=== PATIENT | female | born 1980 | race Caucasian/White ===

== ENCOUNTER 2017-05-05 20:44 | Emergency (ER) | payer OTHER, SELFPAY ==
[2017-05-05 20:45] VITALS: BP 159/108; PULSE 86; RESP 17; TEMP 37.2; O2SAT 97; BMI 36.4
--- NOTE | 2017-05-05 21:07 | ED.DCSUM_ITS ---
- ER Visit Summary Date of Service: 05/05/17 Chief Complaint: Flu History of Present Illness: The patient is a 37 F who presents because of severe headache, myalgias, arthralgias, nonproductive cough, nasal congestion that has gotten worse since yesterday. Yesterday she had nausea and vomiting. She is had no diarrhea. She denies rash. She denies stiffness of her neck. She is a non-smoker. These read written note for complete detail Physical Examination: Vital signs are remarkable for blood pressure 159/108. Head is atraumatic normocephalic. Pupils are equal round reactive. Extraocular muscles are intact. TMs are pearly white with landmarks noted. Nares patent with no drainage. Posterior pharynx without erythema or exudate. Uvula is midline. There is no dysphonia or dysphasia. Trachea is midline. There is no stridor with auscultation of the neck. Neck is supple with no meningeal findings. Heart is regular without murmur, gallop or rub. S1 and S2 are normal. Lungs are clear to auscultation with good movement of air bilaterally. No rash or skin lesions noted. Neuro exam is nonfocal. Test Results: No tests are indicated Emergency Department Course and Treatment: Patient was explained benefits of Tamiflu versus no treatment. After her questions were answered she declined Tamiflu. Treatment Plan: Symptomatic and appropriate home-going instructions Disposition: Discharge to home with spouse Impression: Influenza This note was generated with [employer] dictation software. It may contain incorrect words, spelling, and punctuation that were not noted in review of the chart prior to signing ED Disposition - Plan for ED Patient: Disposition: Home or Assisted Living Chief Complaint: General Illness Instructions: ED Flu Referrals: Dennis Sosa MD [Primary Care Provider] - 1 Week if not improving
[2017-05-05 21:15] VITALS: BP 156/80; PULSE 82; RESP 16; O2SAT 96
== END 2017-05-05 21:16 | disposition home or self-care (01) ==
PROVIDERS: Emergency Provider Emergency Medicine; Family Provider Family Medicine; PCP Family Medicine
DX: J11.1 Influenza due to unidentified influenza virus with other respiratory manifestations (principal); E66.9 Obesity, unspecified
CPT/HCPCS: 99282

== ENCOUNTER 2017-06-06 02:40 | Day surgery (SDC) | payer OTHER, SELFPAY ==
[2017-06-06] VITALS (14 sets, daily range): BP systolic 144–191; BP diastolic 76–124; PULSE 68–96; RESP 16–20; TEMP 36.6–37.2; O2SAT 94–100; BMI 37.6
--- NOTE | 2017-06-06 02:51 | ED.VISSUMM ---
- ER Visit Summary Date of Service: 06/06/17 Chief Complaint: Abdominal pain History of Present Illness: The patient is a 37 F presenting with periumbilical abdominal pain. She states she has been having pain over the past week or so. She went to [facility]. She had ultrasound which was unremarkable. She was put on Protonix and Leivasy and advised to follow-up with her primary care physician. She followed up with Dr. Sosa. She has a CT ordered for June 14. She states approximately 30 min prior to arrival she felt a bulge in her mid abdomen and began having severe pain. Physical Examination: Vitals are stable. Patient is afebrile. Alert no acute distress. HEENT exam is unremarkable. Neck is supple. Lungs are clear and equal bilaterally. Heart is regular rate and rhythm. Abdomen is soft periumbilical tenderness with palpable hernia Extremities are unremarkable. Skin is warm and dry. No focal neurologic deficit. Remainder of exam is unremarkable. Emergency Department Course and Treatment: She was placed in trendelenburg with an ice pack. She was given Dilaudid and zofran IV. Hernia was reduced. She feels that it was out for approximately 30 minutes. CBC is normal. Chemistry unremarkable other than creatinine 1.04. Lactic acid is normal. HCG negative. CT of the abdomen and pelvis with IV and oral contrast was obtained and shows bile ducts are normal in caliber. There are NO kidney stones. There is NO hydronephrosis. There is an umbilical hernia containing loops of small bowel without evidence of incarceration or obstruction. There is NO enteritis. There has been an appendectomy. There is NO ascites or free air, abscess or adenopathy. Patient continues to have pain although it is improved from when she arrived. She was given morphine IV. Discussed with Dr. Duenas and he will evaluate the patient in the ED. Disposition: Per Dr. Duenas Impression: Umbilical hernia This note was generated with [employer] dictation software. It may contain incorrect words, spelling, and punctuation that were not noted in review of the chart prior to signing ED Disposition - Plan for ED Patient: Chief Complaint: Abd Pain Referrals: Dennis Sosa MD [Primary Care Provider] -
[2017-06-06 02:59] LABS: Absolute Lymphocyte Count 3.41 X10^3/ul (0.83-4.51); Basophil# 0.03 X10^3/uL; Basophil% 0.3 % (0-1); Eosinophil# 0.23 X10^3/uL; Eosinophils% 2.2 % (0-5); Hematocrit 45.1 % (37-47); Lymphocyte # 3.41 X10^3/ul (4.0); Lymphocyte % 31.9 % (19-41); Mean Corp Hgb Conc 33.3 g/gl (32-36); Mean Corpuscular Hgb 30.1 pg (27.0-32.0); Mean Corpuscular Volume 90.6 fL (81-99); Mean Platelet Vol. 8.4 fl (6.2-12.0); Monocyte# 0.98 X10^3/uL; Monocyte% 9.2 % (0-10); Neutrophil # 6.01 X10^3/uL (2.7-7.7); Neutrophil % 56.2 % (47-70); Platelet Count 262 K/mm3 (150-450); RBC Distribution Width SD 42.7 fl (35.1-43.9); Red Blood Count 4.98 M/mm3 (4.2-5.4); White Blood Count 10.7 K/mm3 (4.4-11.0)
[2017-06-06] MEDS: HYDROmorphone 1 MG/ML Syringe IV ×3 (02:59→23:35)
[2017-06-06] MEDS: Ondansetron 4 MG/2 ML Vial IV ×2 (02:59→16:49)
[2017-06-06] MEDS: 0.9% Normal Saline 1,000 ML 1000 ML IV (02:59)
--- NOTE | 2017-06-06 03:10 | CT_ITS ---
STUDY: CT ABDOMEN AND PELVIS WITH CONTRAST REASON FOR EXAM: Female, 37 years old. Abdominal pain RADIATION DOSAGE (If Supplied By Facility): CTDIvol = ( 16.95 ) mGy, DLP = ( 1391.77 ) mGycm TECHNIQUE: Transaxial images were obtained from the dome of the diaphragm to the symphysis pubis without oral contrast. 100ML ml of Isovue 300 contrast was administered. Sagittal and coronal images were reconstructed. Individualized dose optimization techniques were used for this CT. COMPARISON: None. FINDINGS: The visualized lung bases are unremarkable. The visualized portions of the heart are within normal limits. Liver is fatty. There is NO mass. There has been a cholecystectomy. Bile ducts are normal in caliber. Normal spleen. Normal pancreas. Normal bilateral adrenal glands. Normal right kidney. There is a 1 cm cyst in the LEFT kidney. There are NO kidney stones. There is NO hydronephrosis. Normal visualized stomach. There is an umbilical hernia containing loops of small bowel without evidence of incarceration or obstruction. There is NO enteritis. Normal colon. There has been an appendectomy. Normal abdominal aorta. Normal inferior vena cava. Normal retroperitoneum. Normal urinary bladder. Uterus is unremarkable. There are bilateral tubal ligation clips. There is NO ascites or free air, abscess or adenopathy. There is NO acute bony abnormality. CT/Abdomen/Pelvis WITH Contrast IMPRESSION: Liver is fatty. There is NO mass. There has been a cholecystectomy. Bile ducts are normal in caliber. There is a 1 cm cyst in the LEFT kidney. There are NO kidney stones. There is NO hydronephrosis. There is an umbilical hernia containing loops of small bowel without evidence of incarceration or obstruction. There is NO enteritis. There has been an appendectomy. Uterus is unremarkable. There are bilateral tubal ligation clips. There is NO ascites or free air, abscess or adenopathy. Electronically Signed: Matt Dsouza MD at 5:31 EDT , Service support ,
[2017-06-06 03:22] LABS: POSITIVE COUNT NO; POSITIVE DIFFERENTIAL NO; POSITIVE MORPHOLOGY NO
[2017-06-06 03:36] LABS: Anion Gap 9 (5-15); BUN 11 mg/dL (7-18); BUN/Creat Ratio 10.6 RATIO (10-20); Calcium,Total 8.9 mg/dL (8.5-10.1); Chloride 103 mmol/L (98-107); Creatinine, Serum 1.04 mg/dL (0.55-1.02); EST Glomerular Filtration Rate 63 mL/min (>60); Est Glom Filt Rate - Afr Amer 77 mL/min (>60); Estimated Creatinine Clearance 82.78 ml/min; Glucose 99 mg/dL (74-106); Potassium 3.8 mmol/L (3.5-5.1); Pregnancy, Serum, hCG Quali. NEGATIVE Negative (0-9 Nonpreg); Sodium Level 140 mmol/L (136-145)
[2017-06-06 03:39] LABS: Lactic Acid 1.7 mmol/L (0.4-2.0)
--- NOTE | 2017-06-06 08:05 | PCM.HP.BLA ---
Problem List (1) Incarcerated ventral hernia Status: Acute History and Physical Date of Admission: 06/06/17 HISTORY AND PHYSICAL ? Latha Schwab 1980 ? REFERRING PHYSICIAN: ~~Self ? CHIEF COMPLAINT: ~~ER umbilical pain ? HPI: The patient is a 37 year old female referred severe pain at her umbilicus and a bulge at her umbilicus.. ~The patient had a prior history of epigastric to right upper quadrant pain. ~This pain radiates to her right lateral abdominal area. ~The pain does occur relatively early after eating. ~The patient presented to [facility] emergency department on November 03, 2016. ~She noted pain in the right upper quadrant after eating fried chicken. ~She denied nausea or vomiting fever or chills. ~From the emergency department. ~She underwent a CT scan of the abdomen and pelvis. ~This demonstrated no gallbladder abnormalities. ~She was noted to have a small right kidney stone and it ovarian cyst. ~I recommended the patient have follow-up hiatus scan with ejection fraction. ~This was performed which demonstrated an ejection fraction of 58%. ~This did not classically reproduce her symptoms. ~ ? Latha has not~undergone prior endoscopy. ~ ? She underwent a diagnostic laparoscopy with tubal ligation, hysteroscopy D&Naima November. In December 2016. I performed a laparoscopic cholecystectomy with interoperative cholangiogram. The patient noted discomfort at her umbilical area. 2 weeks postoperatively after lifting. She did not have an obvious hernia at that time. The patient now notes discomfort at her umbilicus. She had pain last week and presented to an outside emergency department where they did not examine her abdomen in this location and did not diagnose a hernia. The patient now has an upper respiratory tract infection. She's had a cough for the last few days. Overnight, she coughed and then noted severe pain at her umbilicus. In addition to a bulge, which was not reducible. She presented to be emerged from [facility]. The emergency physician noted an umbilical hernia grade. She put ice on the area and was able to reduce the umbilical hernia, such that severe pain had resolved. She obtained a CT scan of the abdomen and pelvis following partial reduction. This demonstrated no bowel obstruction, but did demonstrate loops of small bowel within the ventral incisional/umbilical hernia site. I was contacted. ? PAST?MEDICAL?HISTORY PAST MEDICAL HISTORY Diagnosis Date Abnormal Pap smear of cervix 2011,2012,2013 Dysmetabolic syndrome X ? Obesity (BMI 30.0-34.9) ? Other and unspecified ovarian cyst 2003 ? polycystic ovarian disorder ? ? PAST?SURGICAL?HISTORY PAST SURGICAL HISTORY Procedure Laterality Date APPENDECTOMY ? 03-15-05 DELIVERY ONLY ? 11/30/14 ? , low transverse COLPOSCOPY ? ? LEEP PROCEDURE ([facility])_* ? 2011 PAST SURGICAL HISTORY OF ? 1989 ? FOOT SURGERY, LEFT ingrown toenails REMOVAL ADENOIDS,PRIMARY,<12 Y/O ? ? ? Adenoidectomy REMOVAL OF TONSILS,<12 Y/O ? ? ? Tonsillectomy ? ? CURRENT?MEDICATIONS ? Current Outpatient Prescriptions: Hydrochlorothiazide 12.5 mg capsule Take 1 capsule by mouth once daily. ibuprofen (MOTRIN) 200 mg tablet Take 800 mg by mouth every 6 hours as needed. levonorgestrel (MIRENA) 20 mcg/24 hr (5 years) IUD Inserted in office omeprazole (PRILOSEC) 20 mg capsule Take 1 capsule by mouth once daily. ? No current facility-administered medications for this visit. ? ALLERGIES: Monistat 7 [Miconazole]; Seasonal Allergies; Adhesive Tape (Rosins) ? PERSONAL HISTORY: SOCIAL?HISTORY Social History ~~Marital status: ~~~~~~~~~~~Spouse name: Bill ~~~~~~~~~~~~~ ~~Years of education: 12 ~~~~~~~~~~~~~Number of children: 1 ~~~~~~~~ ? 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 Social History Main Topics ~~Smoking status: Never Smoker ~~~~~~~~~~~~~~~~~~~~~~~~~~~~~~~~~~~~~~~~~~~~~~~~~~~~~~~~~ ? ~~Smokeless status: Never Used ~~~~~~~~~~~~~~~~~~~ ~~Alcohol use: Yes ~~~~~~~~ ~~~~~Comment: rare ~~Drug use: No ~~~~~~~~~ ~~Sexual activity: Yes ~~~~~~~~~~~~~~Partners with: Male ~~~~~ control/protection: IUD ? Other Topics ~~~~~~~~~~~Concern Service ~~~~~~~No Blood Transfusions ~~~~~No Caffeine Concern ~~~~~~~No Occupational Exposure ~~No Hobby Hazards ~~~~~~~~~~No Sleep Concern ~~~~~~~~~~No Stress Concern ~~~~~~~~~No Weight Concern ~~~~~~~~~Yes Special Diet ~~~~~~~~~~~Yes Back Care ~~~~~~~~~~~~~~No Exercise ~~~~~~~~~~~~~~~No Bike Helmet ~~~~~~~~~~~~No Seat Belt ~~~~~~~~~~~~~~No Self-Exams ~~~~~~~~~~~~~No ? ? FAMILY HISTORY: FAMILY?HISTORY FAMILY HISTORY Problem Relation Age of Onset LIVER FAILURE [OTHER] Father ? thyroid [OTHER] Father ? ? ? hypothyroid Diabetes Mother ? Breast Cancer Maternal Grandmother ? Cancer Other ? ? ? ovarian ? REVIEW OF SYMPTOMS: ~~The review of systems data was entered by the nurse and reviewed by me ? Nursing Notes: Mabel Thomas LPN ~11/15/2016 ~3:09 PM ~Signed REVIEW OF SYSTEMS: ~~~~~General:~~~The patient NOTES fatigue, NOTES weight loss, denies weight gain, denies feeling hot, and denies feelings of cold. ~~~~~Eyes: ~The patient denies glaucoma, denies eye injury/surgery, wears glasses or contacts. ~~~~~Ear/Nose/Throat: ~The patient denies allergies, denies hayfever, denies ear infections, and denies bloody noses. ~~~~~Cardiovascular: ~The patient denies chest pain, denies heart disease, NOTES high blood pressure,denies cardiac stent, denies prior heart attack, denies irregular heart beat, denies high cholesterol, ~denies poor circulation, denies heart failure, other cardiac issues, denies claudication, denies cold feet, denies peripheral arterial stent. ~~~~~Respiratory: ~The patient denies tuberculosis, NOTEs pneumonia, denies frequent cough, denies pulmonary embolism, denies shortness of breath, and denies coughing up blood. ~~~~~Gastrointestinal: ~The patient denies difficulty swallowing, denies acid reflux, denies ulcers, denies vomiting, denies jaundice/hepatitis, denies gallbladder problems, denies black or tarry stools, denies hemorrhoids, denies bleeding from rectum, denies diverticulitis, denies constipation, denies diarrhea, denies loss of stool control, and denies hernias. ~~~~~Kidney/Bladder: ~The patient denies kidney stones, denies urine infections, and denies bloody urine NOTES kidney stones. ~~~~~Skin: ~The patient denies a history of skin cancer, denies bleeding/changing moles, and denies a history of skin rash. ~~~~~Neurologic: ~The patient denies a history of epilepsy/convulsions, denies headaches, denies head/spinal injuries, and denies stroke/TIA. ~~~~~Psychiatric: ~The patient denies psychiatric medications, denies depression, and denies voices, denies substance abuse. ~~~~~Endocrine: ~The patient denies thyroid disorders, denies diabetes, and denies hormonal problems. ~~~~~Hematologic: ~The patient denies a history of bruising, denies bleeding, and denies anemia, denies blood clots. ~~~~~Infections: ~The patient denies a history of measles and mumps, denies rheumatic fever, and denies sexually transmitted diseases. ~~~~~Musculoskeletal: ~The patient denies back pain/injury, denies back problems, denies sciatica, denies knee/foot trouble, denies arthritis, or denies gout. ? ? When was patient's last Mammogram screening? 11/2005 ? ~Last Colonoscopy: ~None ? Mabel Thomas LPN ? ?? PHYSICAL EXAMINATION: ? General: ~The patient is 37 year old female, well nourished, well hydrated in no acute distress. ~The patient is oriented to time, place, and person. ? VITALS: ? HEENT: ~Normal cephalic, ataumatic, pupils are equally round, sclera are anicteric, mucous membranes are moist, oropharynx is clear. ~Neck has no masses, asymmetry or lymphadenopathy. ~Thyroid is unremarkable. ? Respiratory: ~Clear to auscultation and percussion. ~Normal respiratory excursion and pattern. ? Cardiac: ~Examination is regular rate and rhythm. ? Abdominal exam: ~Soft, tender at the umbilicus - hernia, not obvious as related to CT scan image is a suggestion of fullness in the area, ~with no palpable masses. ~No hepatosplenomegaly. Rectal exam: exam deferred ? Extremities: ~no clubbing, cyanosis or edema. ~No adenopathy. ? Other: ? LABORATORY VALUES: As Noted ? RADIOLOGIC STUDIES: ~As Noted ? Assessment ~ IMPRESSION: incarcerated incisional hernia with small bowel ? PLAN: ~I plan to reduction of small bowel with laparoscopic incisional hernia repair with mesh. The patient understands the risks, benefits, complications, and possible alternatives to surgical procedure. The patient consents to surgical procedure. ? ? Diagnoses:incarcerated ventral hernia ? Gianna maintained nothing by mouth. She last ate at 10 PM last night. We will plan for Ancef 3 g preoperatively. ? Gopal Duenas MD
--- NOTE | 2017-06-06 08:16 | HP.PCM_ITS ---
Problem List (1) Incarcerated ventral hernia Status: Acute History and Physical Date of Admission: 06/06/17 HISTORY AND PHYSICAL ? Latha Schwab 1980 ? REFERRING PHYSICIAN: ~~Self ? CHIEF COMPLAINT: ~~ER umbilical pain ? HPI: The patient is a 37 year old female referred severe pain at her umbilicus and a bulge at her umbilicus.. ~The patient had a prior history of epigastric to right upper quadrant pain. ~This pain radiates to her right lateral abdominal area. ~The pain does occur relatively early after eating. ~The patient presented to [facility] emergency department on November 03, 2016. ~She noted pain in the right upper quadrant after eating fried chicken. ~She denied nausea or vomiting fever or chills. ~From the emergency department. ~She underwent a CT scan of the abdomen and pelvis. ~This demonstrated no gallbladder abnormalities. ~She was noted to have a small right kidney stone and it ovarian cyst. ~I recommended the patient have follow-up hiatus scan with ejection fraction. ~This was performed which demonstrated an ejection fraction of 58%. ~This did not classically reproduce her symptoms. ~ ? Latha has not~undergone prior endoscopy. ~ ? She underwent a diagnostic laparoscopy with tubal ligation, hysteroscopy D&Naima November. In December 2016. I performed a laparoscopic cholecystectomy with interoperative cholangiogram. The patient noted discomfort at her umbilical area. 2 weeks postoperatively after lifting. She did not have an obvious hernia at that time. The patient now notes discomfort at her umbilicus. She had pain last week and presented to an outside emergency department where they did not examine her abdomen in this location and did not diagnose a hernia. The patient now has an upper respiratory tract infection. She's had a cough for the last few days. Overnight, she coughed and then noted severe pain at her umbilicus. In addition to a bulge, which was not reducible. She presented to be emerged from [facility]. The emergency physician noted an umbilical hernia grade. She put ice on the area and was able to reduce the umbilical hernia, such that severe pain had resolved. She obtained a CT scan of the abdomen and pelvis following partial reduction. This demonstrated no bowel obstruction, but did demonstrate loops of small bowel within the ventral incisional/umbilical hernia site. I was contacted. ? PAST?MEDICAL?HISTORY PAST MEDICAL HISTORY Diagnosis Date ? Abnormal Pap smear of cervix 2011,2012,2013 ? Dysmetabolic syndrome X ? ? Obesity (BMI 30.0-34.9) ? ? Other and unspecified ovarian cyst 2003 ? polycystic ovarian disorder ? ? PAST?SURGICAL?HISTORY PAST SURGICAL HISTORY Procedure Laterality Date ? APPENDECTOMY ? 03-15-05 ? DELIVERY ONLY ? 11/30/14 ? , low transverse ? COLPOSCOPY ? ? ? LEEP PROCEDURE ([facility] DEPT)_*[place] ? 2011 ? PAST SURGICAL HISTORY OF ? 1989 ? FOOT SURGERY, LEFT ingrown toenails ? REMOVAL ADENOIDS,PRIMARY,<12 Y/O ? ? ? Adenoidectomy ? REMOVAL OF TONSILS,<12 Y/O ? ? ? Tonsillectomy ? ? CURRENT?MEDICATIONS ? Current Outpatient Prescriptions: Hydrochlorothiazide 12.5 mg capsule Take 1 capsule by mouth once daily. ibuprofen (MOTRIN) 200 mg tablet Take 800 mg by mouth every 6 hours as needed. levonorgestrel (MIRENA) 20 mcg/24 hr (5 years) IUD Inserted in office omeprazole (PRILOSEC) 20 mg capsule Take 1 capsule by mouth once daily. ? No current facility-administered medications for this visit. ? ALLERGIES: Monistat 7 [Miconazole]; Seasonal Allergies; Adhesive Tape (Rosins) ? PERSONAL HISTORY: SOCIAL?HISTORY Social History ~~Marital status: ~~~~~~~~~~~Spouse name: Bill ~~~~~~~~~~~~~ ~~Years of education: 12 ~~~~~~~~~~~~~Number of children: 1 ~~~~~~~~ ? 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 Social History Main Topics ~~Smoking status: Never Smoker ~~~~~~~~~~~~~~~~~~~~~~~~~~~~~~~~~~~~~~~~~~~~~~~~~ ~~~~~~~~ ? ~~Smokeless status: Never Used ~~~~~~~~~~~~~~~~~~~ ~~Alcohol use: Yes ~~~~~~~~ ~~~~~Comment: rare ~~Drug use: No ~~~~~~~~~ ~~Sexual activity: Yes ~~~~~~~~~~~~~~Partners with: Male ~~~~~ control/protection: IUD ? Other Topics ~~~~~~~~~~~Concern Service ~~~~~~~No Blood Transfusions ~~~~~No Caffeine Concern ~~~~~~~No Occupational Exposure ~~No Hobby Hazards ~~~~~~~~~~No Sleep Concern ~~~~~~~~~~No Stress Concern ~~~~~~~~~No Weight Concern ~~~~~~~~~Yes Special Diet ~~~~~~~~~~~Yes Back Care ~~~~~~~~~~~~~~No Exercise ~~~~~~~~~~~~~~~No Bike Helmet ~~~~~~~~~~~~No Seat Belt ~~~~~~~~~~~~~~No Self-Exams ~~~~~~~~~~~~~No ? ? FAMILY HISTORY: FAMILY?HISTORY FAMILY HISTORY Problem Relation Age of Onset ? LIVER FAILURE [OTHER] Father ? ? thyroid [OTHER] Father ? ? ? hypothyroid ? Diabetes Mother ? ? Breast Cancer Maternal Grandmother ? ? Cancer Other ? ? ? ovarian ? REVIEW OF SYMPTOMS: ~~The review of systems data was entered by the nurse and reviewed by me ? Nursing Notes: Mabel Thomas LPN ~11/15/2016 ~3:09 PM ~Signed REVIEW OF SYSTEMS: ~~~~~General:~~~The patient NOTES fatigue, NOTES weight loss, denies weight gain , denies feeling hot, and denies feelings of cold. ~~~~~Eyes: ~The patient denies glaucoma, denies eye injury/surgery, wears glasses or contacts. ~~~~~Ear/Nose/Throat: ~The patient denies allergies, denies hayfever, denies ear infections, and denies bloody noses. ~~~~~Cardiovascular: ~The patient denies chest pain, denies heart disease, NOTES high blood pressure,denies cardiac stent, denies prior heart attack, denies irregular heart beat, denies high cholesterol, ~denies poor circulation, denies heart failure, other cardiac issues, denies claudication, denies cold feet, denies peripheral arterial stent. ~~~~~Respiratory: ~The patient denies tuberculosis, NOTEs pneumonia, denies frequent cough, denies pulmonary embolism, denies shortness of breath, and denies coughing up blood. ~~~~~Gastrointestinal: ~The patient denies difficulty swallowing, denies acid reflux, denies ulcers, denies vomiting, denies jaundice/hepatitis, denies gallbladder problems, denies black or tarry stools, denies hemorrhoids, denies bleeding from rectum, denies diverticulitis, denies constipation, denies diarrhea, denies loss of stool control, and denies hernias. ~~~~~Kidney/Bladder: ~The patient denies kidney stones, denies urine infections , and denies bloody urine NOTES kidney stones. ~~~~~Skin: ~The patient denies a history of skin cancer, denies bleeding/ changing moles, and denies a history of skin rash. ~~~~~Neurologic: ~The patient denies a history of epilepsy/convulsions, denies headaches, denies head/spinal injuries, and denies stroke/TIA. ~~~~~Psychiatric: ~The patient denies psychiatric medications, denies depression , and denies voices, denies substance abuse. ~~~~~Endocrine: ~The patient denies thyroid disorders, denies diabetes, and denies hormonal problems. ~~~~~Hematologic: ~The patient denies a history of bruising, denies bleeding, and denies anemia, denies blood clots. ~~~~~Infections: ~The patient denies a history of measles and mumps, denies rheumatic fever, and denies sexually transmitted diseases. ~~~~~Musculoskeletal: ~The patient denies back pain/injury, denies back problems , denies sciatica, denies knee/foot trouble, denies arthritis, or denies gout. ? ? When was patient's last Mammogram screening? 11/2005 ? ~Last Colonoscopy: ~None ? Mabel Thomas LPN ? ?? PHYSICAL EXAMINATION: ? General: ~The patient is 37 year old female, well nourished, well hydrated in no acute distress. ~The patient is oriented to time, place, and person. ? VITALS: ? HEENT: ~Normal cephalic, ataumatic, pupils are equally round, sclera are anicteric, mucous membranes are moist, oropharynx is clear. ~Neck has no masses , asymmetry or lymphadenopathy. ~Thyroid is unremarkable. ? Respiratory: ~Clear to auscultation and percussion. ~Normal respiratory excursion and pattern. ? Cardiac: ~Examination is regular rate and rhythm. ? Abdominal exam: ~Soft, tender at the umbilicus - hernia, not obvious as related to CT scan image is a suggestion of fullness in the area, ~with no palpable masses. ~No hepatosplenomegaly. Rectal exam: exam deferred ? Extremities: ~no clubbing, cyanosis or edema. ~No adenopathy. ? Other: ? LABORATORY VALUES: As Noted ? RADIOLOGIC STUDIES: ~As Noted ? Assessment ~ IMPRESSION: incarcerated incisional hernia with small bowel ? PLAN: ~I plan to reduction of small bowel with laparoscopic incisional hernia repair with mesh. The patient understands the risks, benefits, complications, and possible alternatives to surgical procedure. The patient consents to surgical procedure. ? ? Diagnoses:incarcerated ventral hernia ? Gianna maintained nothing by mouth. She last ate at 10 PM last night. We will plan for Ancef 3 g preoperatively. ? Gopal Duenas MD
--- NOTE | 2017-06-06 08:40 | HERN_PTH ---
PATIENT: SOPHIE SNOWDEN LOC: [facility] – [place] U#:[id number] AGE/SX: 37/F ROOM: RE06/06/[address]: Dr. Gopal Duenas MD : [id number] BED: DIS: 06/08/2017 SPEC #: [id number] RECD: 06/06/17 13:20 STATUS: DEACON ANKITA #: [id number] SVEN: 06/06/17 08:[address]: Gopal Duenas DEPT: SURGICAL PATHOLOGY RECD BY: Jesús Sainz ENTERED: 06/06/17 13:41 SP TYPE: Hernia OTHR DR: Dr. Dennis Sosa MD Tissues: HERNIA Procedures: Surgery Specimen Level II HEADER OPERATION: Hernia, laparoscopic, ventral hernia repair PRE-OP DIAGNOSIS: Ventral incisional hernia TISSUE SUBMITTED: Hernia sac MICROSCOPIC DIAGNOSIS Hernia sac: Fragment of fibroadipose and fibroconnective tissue consistent with hernia sac with focal fibrosis, chronic inflammation and foreign body giant cell reaction. SJ:[email or web address] 06/07/17 MICROSCOPIC DESCRIPTION Slides are reviewed. GROSS DESCRIPTION Received in fixative is one container labeled with the patient's name and designated hernia sac. The specimen consists of a fibromembranous sac with attached adipose tissue measuring 5 x 3.5 x 1 cm. No mass lesion is identified. Insurance Risk Manager sections are submitted in one cassette. / GARCIA:graciela 06/06/17 TC:5 CPT: 49752
[2017-06-06] MEDS: Bupivacaine Mpf 0.5% 30 ML VIAL (13:18)
--- NOTE | 2017-06-06 13:21 | PCM.OPRPT ---
Problem List (1) Incarcerated ventral hernia Status: Acute Report of Operation Date of Procedure: 06/06/17 Pre-Operative Diagnosis: INCARCERATED ULBILCIAL HERNIA - REDUCED IN ER Post-Operative Diagnosis: INCARCERATED ULBILCIAL HERNIA - REDUCED IN ER - NORMAL APPEARING SMALL BOWEL, 3CM DEFECT AT UMBILICUS Surgery/Procedure Performed:: Laparoscopic incisional hernia repair with mesh campus manager: None Type of Anesthesia:: General Anesthesiologist: Valdez BorjaE Specimen's removed: hernia sac Estimated Blood Loss (mL): 30 Fluids Replaced: 700 Description of Procedure: The patient was brought to the operating suite. Sign in was performed verifying patient, site, procedure, position, and DVT prophylaxis with SCDs. Patient received 2 g Ancef antibiotic prophylaxis. Following induction of general anesthetic, the patients abdomen was prepped and draped in the usual fashion. Timeout was performed verifying patient, site, position. Local anesthetic was injected . A linear incision was made and dissection carried down at the umbilicus to the hernia defect. The hernia sac and the hernia sac was opened. the bowel had spontaneously reduced. A Garrett trocar was inserted into the hernia sac and the balloon blown up. Pneumoperitoneum to 13 mm mercury was insufflated. 3- 5mm warts were placed in the far left lateral position. the small bowel was examined and partially run. There were no signs of abdominal distention. There was one area of slight bruising of the mesentery which was felt to be due to the bowel located within the hernia defect earlier, but no compromised bowel was noted The hernia sac was dissected completely free from the subcutaneous fat down to the level of the fascial defect . The falciform ligament was also divided to prevent tenting and an area of preperitoneal fat was dissected using the Harmonic scalpel to allow the mesh to lay flatly. A ventrio ST mesh [id number] placed intra-abdominally. Prolene sutures were placed transfixing the fascia at 12 , 6 , 3 and 9:00 using a GraNee needle . The mesh was then tacked using a secure strap tacker and a pro-tack tacker around the outer rim of the mesh and then in multiple locations in the inner mesh The hernia sac tissue was excised and sent to pathology. 2 Prolene sutures were placed through the upper and lower aspect of the fascial defect and then through the mesh brought up with a Granee needle . Subcutaneous fat was closed with interrupted 3-0 Vicryl suture. Skin was closed with a running and interrupted 4-0 Monocryl subcuticular sutures. Steri-Strips and bandages were applied. The patient was brought to recovery room in stable condition. Grafts/Implants Used: VentrioST [id number] ref [id number], lot [id number] exp 08/19/2018 - Admit VTE Documentation VTE Present on Admission: No VTE Mechan Device Prophylaxis: SCD's VTE Pharm Prophylaxis ordered?: No
--- NOTE | 2017-06-06 13:24 | OP.PCM_ITS ---
Problem List (1) Incarcerated ventral hernia Status: Acute Report of Operation Date of Procedure: 06/06/17 Pre-Operative Diagnosis: INCARCERATED ULBILCIAL HERNIA - REDUCED IN ER Post-Operative Diagnosis: INCARCERATED ULBILCIAL HERNIA - REDUCED IN ER - NORMAL APPEARING SMALL BOWEL, 3CM DEFECT AT UMBILICUS Surgery/Procedure Performed:: Laparoscopic incisional hernia repair with mesh tree feller operator: None Type of Anesthesia:: General Anesthesiologist: Valdez BorjaE Specimen's removed: hernia sac Estimated Blood Loss (mL): 30 Fluids Replaced: 700 Description of Procedure: The patient was brought to the operating suite. Sign in was performed verifying patient, site, procedure, position, and DVT prophylaxis with SCDs. Patient received 2 g Ancef antibiotic prophylaxis. Following induction of general anesthetic, the patient?s abdomen was prepped and draped in the usual fashion. Timeout was performed verifying patient, site , position. Local anesthetic was injected . A linear incision was made and dissection carried down at the umbilicus to the hernia defect. The hernia sac and the hernia sac was opened. the bowel had spontaneously reduced. A Garrett trocar was inserted into the hernia sac and the balloon blown up. Pneumoperitoneum to 13 mm mercury was insufflated. 3- 5mm warts were placed in the far left lateral position. the small bowel was examined and partially run. There were no signs of abdominal distention. There was one area of slight bruising of the mesentery which was felt to be due to the bowel located within the hernia defect earlier, but no compromised bowel was noted The hernia sac was dissected completely free from the subcutaneous fat down to the level of the fascial defect . The falciform ligament was also divided to prevent tenting and an area of preperitoneal fat was dissected using the Harmonic scalpel to allow the mesh to lay flatly. A ventrio ST mesh [id number] placed intra-abdominally. Prolene sutures were placed transfixing the fascia at 12 , 6 , 3 and 9:00 using a GraNee needle . The mesh was then tacked using a secure strap tacker and a pro-tack tacker around the outer rim of the mesh and then in multiple locations in the inner mesh The hernia sac tissue was excised and sent to pathology. 2 Prolene sutures were placed through the upper and lower aspect of the fascial defect and then through the mesh brought up with a Granee needle . Subcutaneous fat was closed with interrupted 3-0 Vicryl suture. Skin was closed with a running and interrupted 4-0 Monocryl subcuticular sutures. Steri- Strips and bandages were applied. The patient was brought to recovery room in stable condition. Grafts/Implants Used: VentrioST [id number] ref [id number], lot [id number] exp 2018 - Admit VTE Documentation VTE Present on Admission: No VTE Mechan Device Prophylaxis: SCD's VTE Pharm Prophylaxis ordered?: No
[2017-06-06] MEDS: LORazepam 2 MG/ML Syringe 1 MG IV (20:36)
[2017-06-06] MEDS: Cefazolin 1 GM/50 ML BAG IV (20:44)
[2017-06-07] MEDS: Lactated Ringers 1,000 ML 100 ML IV ×3 (01:24→21:15)
[2017-06-07 04:00] VITALS: BP 178/103; PULSE 102; RESP 18; TEMP 37.3; O2SAT 100
[2017-06-07] MEDS: HYDROmorphone 1 MG/ML Syringe IV ×4 (04:11→19:05)
[2017-06-07] MEDS: Cefazolin 1 GM/50 ML BAG IV (04:17)
--- NOTE | 2017-06-07 06:03 | PCM.PN.SRG ---
Patient Problems: Active and Suspected Problems Incarcerated ventral hernia (Acute) Subjective: SIGNIFICANT INCISIONAL PAIN - Physical Exam General: Alert, Oriented x3 Lungs: Clear to auscultation, Normal air movement Cardiovascular: Regular rate, Regular Rhythm Abdomen: Soft, Hypoactive Bowel Sounds, Tender - AT INCISIONS, INCISIONS C/D/I Vital Signs Temp Pulse Resp BP Pulse Ox 99.1 F 102 H 18 178/103 H 100 06/07/17 04:00 06/07/17 04:00 06/07/17 04:00 06/07/17 04:00 06/07/17 04:00 Oxygen Flow Rate (L/min) 2 Oxygen Delivery Method Nasal Cannula Weight: 122.4 kg Body Mass Index (BMI) 37.6 Intake and Output for Last 24 Hours 06/05/17 06/06/17 06/07/17 23:59 23:59 23:59 Intake Total 2359 / 2359 1209 / 1209 Output Total 650 / 650 Balance 2359 / 2359 559 / 559 Assessment/Plan Active and Suspected Problems Incarcerated ventral hernia (Acute) POD # 1 S/P REPAIR OF INCARCERATED VENTRAL/INCISIONAL HERNIA Patient with significant incisional pain. some improvement with ativan for abdominal wall muscle spasms. need to ambulated and use incentive spirometer. Hypoactive bowel sounds - will continue clears. will not advance until improved bowel activity Hypertension - will add metoprolol DBP still greater than 100.
[2017-06-07 08:09] LABS: Absolute Lymphocyte Count 1.42 X10^3/ul (0.83-4.51); Absolute Neutrophil Count 10.1 X10^3/uL (2.0-7.7); Basophil# 0.02 X10^3/uL; Basophil% 0.2 % (0-1); Eosinophil# 0.05 X10^3/uL; Eosinophils% 0.4 % (0-5); Hematocrit 42.7 % (37-47); Hemoglobin 13.8 g/dl (12.0-15.0); Lymphocyte # 1.42 X10^3/ul (4.0); Lymphocyte % 11.5 % (19-41); Mean Corp Hgb Conc 32.3 g/gl (32-36); Mean Corpuscular Hgb 29.8 pg (27.0-32.0); Mean Corpuscular Volume 92.2 fL (81-99); Mean Platelet Vol. 8.2 fl (6.2-12.0); Monocyte# 0.75 X10^3/uL; Monocyte% 6.1 % (0-10); Neutrophil # 10.12 X10^3/uL (2.7-7.7); Neutrophil % 81.6 % (47-70); Platelet Count 227 K/mm3 (150-450); RBC Distribution Width CV 13.2 % (11.6-14.6); RBC Distribution Width SD 44.5 fl (35.1-43.9); Red Blood Count 4.63 M/mm3 (4.2-5.4); White Blood Count 12.4 K/mm3 (4.4-11.0)
[2017-06-07 08:10] LABS: POSITIVE COUNT NO; POSITIVE DIFFERENTIAL NO; POSITIVE MORPHOLOGY NO
[2017-06-07 08:27] LABS: Anion Gap 6 (5-15); BUN 7 mg/dL (7-18); BUN/Creat Ratio 8.3 RATIO (10-20); Calcium,Total 7.9 mg/dL (8.5-10.1); Chloride 102 mmol/L (98-107); Creatinine, Serum 0.84 mg/dL (0.55-1.02); EST Glomerular Filtration Rate 81 mL/min (>60); Est Glom Filt Rate - Afr Amer 97 mL/min (>60); Estimated Creatinine Clearance 102.49 ml/min; Glucose 117 mg/dL (74-106); Potassium 3.8 mmol/L (3.5-5.1); Sodium Level 137 mmol/L (136-145)
[2017-06-07] MEDS: 0.9% NaCl Peripheral Flush Adult/Peds IV ×3 (09:01→16:40)
--- NOTE | 2017-06-07 09:28 | NURSING ---
Addendum entered by Norma Roach 06/07/17 12:09: Pt asked for a walker so she can walk in decker. Walked in decker with walker and assistance from architectural project captain. Pt then assisted into chair and sat up in chair for one hour. While sitting in chair pt was educated about splinting abd and coughing. Pt is hesitant It hurts to cough. Explained importance of coughing. Encouraged I.S as well. Original Note: Assisted to bathroom. When Latha was done toileting, this nurse told the architectural project captain to ambulate pt in the decker. Did walk in decker and back into room and sitting in chair.
[2017-06-07 10:35] VITALS: BP 163/67; PULSE 100; RESP 20; TEMP 37.3; O2SAT 96
[2017-06-07 11:11] VITALS: PULSE 100
[2017-06-07] MEDS: Ibuprofen 600 MG Tablet PO (11:11)
[2017-06-07] MEDS: Metoprolol Tartrate 25 MG Tablet PO ×2 (11:11→21:15)
[2017-06-07] MEDS: LORazepam 2 MG/ML Syringe 1 MG IV (11:24)
[2017-06-07 13:48] VITALS: BP 141/91; PULSE 89; RESP 16; TEMP 37.3; O2SAT 95
[2017-06-07] MEDS: oxyCODONE 5 MG Tablet PO (15:07)
[2017-06-07] MEDS: Acetaminophen 325 MG Tablet 650 MG PO (16:29)
--- NOTE | 2017-06-07 16:54 | NURSING ---
Walked in decker with this nurse assistance. Went slightly further in the decker walking then she did this morning. Sitting up in chair at this time. Awake and attempting to eat dinner.
[2017-06-07 19:45] VITALS: BP 146/110; PULSE 87; RESP 16; TEMP 37.6; O2SAT 100
[2017-06-07 21:15] VITALS: BP 146/110; PULSE 87
[2017-06-08] MEDS: HYDROmorphone 1 MG/ML Syringe IV (01:55)
[2017-06-08] MEDS: Acetaminophen 325 MG Tablet 650 MG PO ×2 (02:03→07:11)
[2017-06-08] MEDS: Lactated Ringers 1,000 ML 100 ML IV (07:07)
[2017-06-08] MEDS: Ibuprofen 600 MG Tablet PO (07:10)
[2017-06-08 08:01] VITALS: BP 132/88; PULSE 64; RESP 16; TEMP 37.3; O2SAT 98
--- NOTE | 2017-06-08 08:03 | DCINST_ITS ---
Discharge Diet: Light diet - advance as tolerated Discharge Activity: Return to Normal Activity, May Drive - when you are no longer taking narcotic pain medications., May Shower - with the bandage in place 1-2 days after surgery. Lifting Restrictions: 20 pounds for 8 weeks. Additional Activity Instructions:: Climbing stairs is fine, walking is encouraged. Sitting in bed may be uncomfortable. Sitting up using your lateral muscles (sitting up sideways) is usually more comfortable. Do not drive, work heavy equipment of sign legal documents for 24 hours. If your hernia repair was an ingunial repair, you may have scrotal swelling, an ice pack and/or athletic support can provide more comfort. Pain medications may cause nausea, you should typically eat light foods as you take your pain medications. Pain medications may also cause constipation. If you have difficulty with this, discuss with your doctor. Call your doctor if your incision/area has: Continuous Slow Oozing, Sudden Increased Bleeding, Increased Pain/ Swelling, Increased Redness, Foul Smelling Discharge Call your doctor if you observe: Fever of 101 or Higher Suture Line Care: Avoid Pulling/Pushing, Avoid Pinching/Bending Additional Dressing/Incision Instructions:: Leave the operative bandage on for 2 -3 days. When you remove the bandage, leave the steri-strips on place until your follow up appointment or they fall off. Allergies/Adverse Reactions: Allergies adhesive tape Adverse Reaction (Verified 06/06/17 02:44) Rash metronidazole [From Flagyl] Adverse Reaction (Verified 06/06/17 02:44) Vomiting NSAIDS (Non-Steroidal Anti-Inflamma Adverse Reaction (Verified 06/06/17 02:44) Upset Stomach Medications to take at Discharge [place] 5-325 Tablet 1 tab PO Q4H PRN 06/06/17 Pantoprazole Sodium [Protonix] 40 mg PO DAILY 06/06/17 Acetaminophen [Tylenol Tablet] 650 mg PO Q4H PRN PRN tablet 06/08/17 Metoprolol Tartrate [Lopressor (beta bakari)] 50 mg PO BID #60 tab 06/08/17 Oxycodone [Oxyir] 5 mg PO Q6H PRN PRN 7 Days #20 tab 06/08/17 The following prescriptions were given: Oxycodone [Oxyir] 5 mg PO Q6H PRN PRN 7 Days #20 tab PRN Reason: Severe Pain (6-01/01) Metoprolol Tartrate [Lopressor (beta bakari)] 50 mg PO BID #60 tab Primary Care Physician: Dennis Sosa MD [Primary Care Provider] - Please Follow Up With: Gopal Duenas MD - [phone] When: Plan to have a follow up appointment in 7 days. Call to schedule.
--- NOTE | 2017-06-08 08:59 | PCM.DC.SUM ---
Discharge Date and Diagnosis - Problem List Patient Problems: Active and Suspected Problems Incarcerated ventral hernia (Acute) Date of Admission: 06/06/17 Date of Discharge: 06/08/17 - Primary Discharge Diagnosis Active and Suspected Problems Incarcerated ventral hernia (Acute) - Secondary Discharge Diagnosis Chronic Problems Depression (Chronic) Migraine (Chronic) hypertension Hospital Course and Treatment Operations: None, herniorrhaphy Summary of Care Provided: The patient is a 37 year old F he presented with an incarcerated umbilical hernia with small bowel present, which was able to be reduced in the emergency department. The patient was then taken for urgent hernia repair and underwent a laparoscopic incisional hernia repair with 11 x [address] mesh. the patient was maintained in the hospital until postoperative day 2 due to significant incisional pain. Pain improved and the patient's pain was managed with oral pain medications and she was ready for discharge to home. The patient was found to have significant hypertension with a blood pressure in the 170s to 110 range. She was started on IV antihypertensive medications and converted to oral metoprolol. The patient will be discharged home with a prescription for metoprolol. Discharge Diet: Light diet - advance as tolerated Discharge Activity: Return to Normal Activity, May Drive - when you are no longer taking narcotic pain medications., May Shower - with the bandage in place 1-2 days after surgery. Additional Activity Instructions:: Climbing stairs is fine, walking is encouraged. Sitting in bed may be uncomfortable. Sitting up using your lateral muscles (sitting up sideways) is usually more comfortable. Do not drive, work heavy equipment of sign legal documents for 24 hours. If your hernia repair was an ingunial repair, you may have scrotal swelling, an ice pack and/or athletic support can provide more comfort. Pain medications may cause nausea, you should typically eat light foods as you take your pain medications. Pain medications may also cause constipation. If you have difficulty with this, discuss with your doctor. Call your doctor if your incision/area has: Continuous Slow Oozing, Sudden Increased Bleeding, Increased Pain/ Swelling, Increased Redness, Foul Smelling Discharge Call your doctor if you observe: Fever of 101 or Higher Suture Line Care: Avoid Pulling/Pushing, Avoid Pinching/Bending Additional Dressing/Incision Instructions:: Leave the operative bandage on for 2-3 days. When you remove the bandage, leave the steri-strips on place until your follow up appointment or they fall off. Home Medications: Medications to take at Discharge [place] 5-325 Tablet 1 tab PO Q4H PRN 06/06/17 Pantoprazole Sodium [Protonix] 40 mg PO DAILY 06/06/17 Acetaminophen [Tylenol Tablet] 650 mg PO Q4H PRN PRN tablet 06/08/17 Metoprolol Tartrate [Lopressor (beta bakari)] 50 mg PO BID #60 tab 06/08/17 Oxycodone [Oxyir] 5 mg PO Q6H PRN PRN 7 Days #20 tab 06/08/17 Following Prescrptions Were Given to Patient: Oxycodone [Oxyir] 5 mg PO Q6H PRN PRN 7 Days #20 tab PRN Reason: Severe Pain (6-01/01) Metoprolol Tartrate [Lopressor (beta bakari)] 50 mg PO BID #60 tab Primary Care Physician: Dennis Sosa MD [Primary Care Provider] - Please Follow Up With: Gopal Duenas MD - [phone] When: Plan to have a follow up appointment in 7 days. Call to schedule. Medical Necessity - Tobacco Use Smoking Status: Never smoker Meaningful Use Info Meaningful Use Diagnoses (Choose all that apply): None applicable
[2017-06-08 10:04] VITALS: PULSE 70
[2017-06-08] MEDS: oxyCODONE 5 MG Tablet PO (10:04)
[2017-06-08] MEDS: Metoprolol Tartrate 50 MG Tablet PO (10:04)
[2017-06-08 10:07] VITALS: BP 140/89; PULSE 70; RESP 18; TEMP 37.6; O2SAT 96
--- NOTE | 2017-06-08 11:26 | NURSING ---
Walked in decker around nurses station without walker and splinting abd with pillow. Pt encouraged to sit her in chair afterwards, but refused. Wanted to go back to sleep and take a nap. Not ready to go home yet per pt.
== END 2017-06-08 12:37 | disposition home or self-care (01) ==
LOC: ED 06:57 → SDC 08:04 → AC 08:05 → MS3 14:40
PROVIDERS: Emergency Provider Emergency Medicine; Family Provider Family Medicine; PCP Family Medicine; Visit Provider Surgery
PROC: 0WQF4ZZ Repair Abdominal Wall, Percutaneous Endoscopic Approach (ICD-10-PCS; CPT 49655; principal; 2017-06-06 08:20)
DX: K43.0 Incisional hernia with obstruction, without gangrene (principal); G89.18 Other acute postprocedural pain; I10 Essential (primary) hypertension; E88.81 Metabolic syndrome and other insulin resistance; E28.2 Polycystic ovarian syndrome; K21.9 Gastro-esophageal reflux disease without esophagitis; F32.9 Major depressive disorder, single episode, unspecified; E66.9 Obesity, unspecified; Z68.37 Body mass index [BMI] 37.0-37.9, adult; Z98.51 Tubal ligation status; Z90.710 Acquired absence of both cervix and uterus
CPT/HCPCS: 49655; 36415; 74177; 80048; 83605; 84703; 85025; 88302; 99283; J7030; J7120; Q9967; A4216; C1781; J2405

== ENCOUNTER 2017-06-10 21:52 | Emergency (ER) | payer OTHER, SELFPAY ==
[2017-06-10 21:53] VITALS: BP 158/110; PULSE 66; RESP 16; TEMP 36.8; O2SAT 99; BMI 36.8
--- NOTE | 2017-06-10 22:54 | RAD_ITS ---
XR Chest 2 Views INDICATION: recent hernia repair, rt upper chest and back pain FINDINGS: Heart size and pulmonary vascularity are within normal limits. The lungs are clear without evidence of airspace consolidation or pleural effusion. The osseous structures are grossly unremarkable. RAD/Chest PA and Lateral IMPRESSION: No radiographic evidence of acute intrathoracic disease. at 0010 Reported and signed by: Vane Reardon MD Electronically Signed: Vane Reardon MD at 23:09 EDT Tel , Service support ,
--- NOTE | 2017-06-10 22:59 | ED.VISSUMM ---
- ER Visit Summary Date of Service: 06/10/17 Chief Complaint: [] Postop pain History of Present Illness: The patient is a 37 F [] complaining of pain in her incisions status post umbilical hernia repair with mesh 2 days ago. Patient reports she saw Dr. Duenas. She reports surgery was uncomplicated. She reports generalized malaise, concern for possible site infection, nausea/diarrhea. Denies vomiting. Reports subjective fever and chills at home. No other complaints at this time. Physical Examination: [] Afebrile, vital signs stable. 37-year-old female in no acute distress. Cardiovascular exam is regular rate and rhythm. Lungs were auscultation. Abdomen is soft with mild tenderness around the laparoscopic incision areas. Umbilicus appears normal without signs of infection, erythema, operative failure of the mesh. Test Results: [] Labs: CT, BMP, LFTs, urinalysis normal. Chest x-ray negative. Emergency Department Course and Treatment: [] Patient given intravenous fluids, morphine, Phenergan. On serial exam she had improvement of symptoms. All cultures ?2 were obtained however those results are pending. Patient was given a outpatient prescription for Phenergan for further symptom relief of her nausea. She was encouraged to follow-up with her surgeon return if symptoms worsen/recur. She was counseled regarding her diagnostic and laboratory studies and is amenable to discharge at this time. Treatment Plan: [] Discharge to follow-up with surgeon. Disposition: [] Discharge, stable. Impression: [] Nausea Diarrhea Wound check This note was generated with [employer] dictation software. It may contain incorrect words, spelling, and punctuation that were not noted in review of the chart prior to signing ED Disposition - Plan for ED Patient: Chief Complaint: Wound Check Referrals: Dennis Sosa MD [Primary Care Provider] -
[2017-06-10] MEDS: 0.9% Normal Saline 1,000 ML 1000 ML IV (23:28)
[2017-06-10 23:39] LABS: Bacteria 0 SEEN /hpf (None Seen); Mucous, Urine 0 SEEN /hpf (<or=2+); Red Blood Cells-Urine 0 SEEN /hpf (0-5); White Blood Cells 0 SEEN /hpf (0-5)
[2017-06-11] VITALS: BP 150/91; PULSE 62; RESP 16; O2SAT 98
[2017-06-11 00:07] LABS: ALB/GLOB Ratio 0.9 RATIO (0.9-2.4); AST(SGOT) 20 U/L (15-37); Alanine Aminotransfer ALT/SGPT 37 U/L (13-56); Albumin, Serum 3.5 g/dL (3.2-5.0); Alkaline Phosphatase 71 U/L (45-117); Anion Gap 9 (5-15); BUN 11 mg/dL (7-18); BUN/Creat Ratio 12.9 RATIO (10-20); Calcium,Total 8.3 mg/dL (8.5-10.1); Chloride 105 mmol/L (98-107); Creatinine, Serum 0.85 mg/dL (0.55-1.02); EST Glomerular Filtration Rate 80 mL/min (>60); Est Glom Filt Rate - Afr Amer 97 mL/min (>60); Estimated Creatinine Clearance 101.28 ml/min; Globulin 3.9 g/dL (2.2-4.2); Glucose 83 mg/dL (74-106); Potassium 3.8 mmol/L (3.5-5.1); Protein, Total 7.4 g/dL (6.4-8.2); Sodium Level 141 mmol/L (136-145)
[2017-06-11 00:16] LABS: Color, Urine Yellow (Yellow); Glucose, Dipstick Normal (Normal); Ketone-Dipstick Negative (Negative); Leukocyte Esterase-Dipstick Negative /ul (Negative); Nitrite-Dipstick Negative (Negative); Occult Blood-Urine Negative /ul (Negative); Protein-Dipstick Negative (Negative); Urine Bilirubin Dipstick Negative (Negative); Urine Clarity Sl. Cloudy (Clear); Urine Urobilinogen Normal (Normal)
[2017-06-11 00:18] LABS: Absolute Lymphocyte Count 2.11 X10^3/ul (0.83-4.51); Absolute Neutrophil Count 5.5 X10^3/uL (2.0-7.7); Basophil# 0.02 X10^3/uL; Basophil% 0.2 % (0-1); Eosinophil# 0.33 X10^3/uL; Eosinophils% 3.8 % (0-5); Hematocrit 42.9 % (37-47); Hemoglobin 14.1 g/dl (12.0-15.0); Lymphocyte # 2.11 X10^3/ul (4.0); Lymphocyte % 24.6 % (19-41); Mean Corp Hgb Conc 32.9 g/gl (32-36); Mean Corpuscular Hgb 29.6 pg (27.0-32.0); Mean Corpuscular Volume 90.1 fL (81-99); Mean Platelet Vol. 9.2 fl (6.2-12.0); Monocyte# 0.63 X10^3/uL; Monocyte% 7.3 % (0-10); Neutrophil # 5.48 X10^3/uL (2.7-7.7); Platelet Count 279 K/mm3 (150-450); RBC Distribution Width CV 12.8 % (11.6-14.6); RBC Distribution Width SD 41.2 fl (35.1-43.9); Red Blood Count 4.76 M/mm3 (4.2-5.4); White Blood Count 8.6 K/mm3 (4.4-11.0)
[2017-06-11 00:31] LABS: POSITIVE COUNT NO; POSITIVE DIFFERENTIAL NO; POSITIVE MORPHOLOGY NO
[2017-06-11 00:32] LABS: Amorphous Sediment 1+ PHOS; Squamous Epithelial Cells - UA 0-5 SEEN /hpf (5-10)
--- NOTE | 2017-06-11 00:59 | ED.DEP ---
ED Disposition - Plan for ED Patient: Disposition: Home or Assisted Living Chief Complaint: Wound Check Instructions: ED Wound Check Post Op No Infec, ED Nausea Vomiting Prescriptions: ProMETHAzine [Phenergan] 25 mg PO Q6H PRN PRN #20 tab PRN Reason: Nausea Referrals: Dennis Sosa MD [Primary Care Provider] -
[2017-06-11 01:15] VITALS: BP 134/87; PULSE 59; RESP 16; O2SAT 99
== END 2017-06-11 01:17 | disposition home or self-care (01) ==
PROVIDERS: Emergency Provider Emergency Medicine; Family Provider Family Medicine; PCP Family Medicine
DX: R11.0 Nausea (principal); R19.7 Diarrhea, unspecified; G89.18 Other acute postprocedural pain; I10 Essential (primary) hypertension; K21.9 Gastro-esophageal reflux disease without esophagitis
CPT/HCPCS: 71046; 80053; 81001; 85025; 87040; 96361; 96374; 96375; 99283; J7030; A4216

== ENCOUNTER 2018-02-24 23:29 | Emergency (ER) | payer SELFPAY ==
[2018-02-24 23:29] VITALS: BP 165/111; PULSE 87; RESP 18; TEMP 36.4; O2SAT 100; BMI 36.2
[2018-02-25] MEDS: proMETHazine 25 MG/ML Syringe 12.5 MG IV (00:08)
[2018-02-25] MEDS: 0.9% Normal Saline 1,000 ML 1000 ML IV (00:08)
--- NOTE | 2018-02-25 00:31 | ED.VISSUMM ---
- ER Visit Summary Date of Service: 02/25/18 Chief Complaint: Nausea vomiting and diarrhea History of Present Illness: The patient is a 37 F who presents with nausea vomiting and diarrhea. 4-5 hours ago she developed sudden onset nausea vomiting and diarrhea. She reports 7-8 episodes of nonbloody nonbilious emesis followed by dry heaving. She has had 2 episodes of watery stools. She complains of intermittent abdominal cramping preceding the vomiting or diarrhea but has no abdominal pain currently. No fevers. She states she has been unable to tolerate anything by mouth even water. Physical Examination: Afebrile blood pressure 165/111 vitals otherwise normal Moist mucous membranes Heart regular rate and rhythm Lungs are clear Abdomen soft nontender nondistended Alert Test Results: Not indicated Emergency Department Course and Treatment: Patient's history and exam are most suggestive of a viral gastroenteritis. She has no abdominal pain or fever. I do not believe any diagnostic testing is necessary at this time. She was treated symptomatically with IV fluids Phenergan and Imodium. She has had no further vomiting or diarrhea here and does report symptomatic improvement. She tolerated a p.o. challenge. She was advised on supportive care at home. She understands to return for new or worsening symptoms. She was discharged. Treatment Plan: [] Disposition: Discharge Impression: Gastroenteritis This note was generated with [employer] dictation software. It may contain incorrect words, spelling, and punctuation that were not noted in review of the chart prior to signing ED Disposition - Plan for ED Patient: Chief Complaint: Nausea/Vomiting/Diarrhea Referrals: Dennis Sosa MD [Primary Care Provider] -
--- NOTE | 2018-02-25 00:33 | ED.DEP ---
ED Disposition - Plan for ED Patient: Chief Complaint: Nausea/Vomiting/Diarrhea Instructions: ED Gastroenteritis Viral Prescriptions: Ondansetron [Zofran Odt] 4 mg PO Q8H PRN PRN #4 tab PRN Reason: Nausea Referrals: Dennis Sosa MD [Primary Care Provider] -
[2018-02-25 01:01] VITALS: BP 141/99; PULSE 79; RESP 16; O2SAT 98
== END 2018-02-25 01:02 | disposition home or self-care (01) ==
LOC: ED 02-25 00:11
PROVIDERS: Emergency Provider Emergency Medicine; Family Provider Family Medicine; PCP Family Medicine
DX: K52.9 Noninfective gastroenteritis and colitis, unspecified (principal); I10 Essential (primary) hypertension; K21.9 Gastro-esophageal reflux disease without esophagitis; Z98.51 Tubal ligation status; Z79.899 Other long term (current) drug therapy
CPT/HCPCS: 96361; 96374; 99283; J7030; A4216

== ENCOUNTER 2018-04-03 11:39 | Emergency (ER) | payer SELFPAY ==
[2018-04-03 11:41] VITALS: BP 161/109; PULSE 81; RESP 17; TEMP 36.3; O2SAT 98; BMI 38.6
--- NOTE | 2018-04-03 12:01 | EKG12_ITS ---
Test Reason : ABD PAIN Blood Pressure : / mmHG Vent. Rate : 070 BPM Atrial Rate : 070 BPM P-R Int : 178 ms QRS Dur : 100 ms QT Int : 426 ms P-R-T Axes : 037 -04 010 degrees QTc Int : 460 ms Normal sinus rhythm Normal ECG Confirmed by MENG MUSE, KATY ([id number]), communications editor ELDER HAMEED ([id number]) on 04/08/2018 4:54:18 PM Referred By: FRAN Confirmed By:KATY FAN MD
--- NOTE | 2018-04-03 12:03 | ED.DCSUM_ITS ---
- ER Visit Summary Date of Service: 04/03/18 Chief Complaint: Abdominal pain History of Present Illness: The patient is a [address] Sosa and Dr. Platt. She reports that she has abdominal pain that began 2 weeks ago. Sick continuous aching pain that waxes and wanes. States that it 7 out of 10 at worst and 6 out of 10 currently. Is worsened by coffee and relieved by nothing. She has had nausea without vomiting. Reports he had diarrhea 3-4 times a day for approximate the past 3 weeks. No blood in her stools or black tarry stools. 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 Has not been camping out of the country. No possible bad food exposure. Does not drink well water. No recent antibiotic use. Patient reports that she had dysuria and frequency for a single day last week. She reports that has now resolved. Her last menstrual period was 1 week ago. She denies any vaginal bleeding or discharge. On review of systems patient complains of chills. She denies any fever. No chest pain or shortness of breath. She reports she has right flank pain that began today. 3 out of 10 severity. She also complains of fatigue and generalized weakness. Physical Examination: Vitals: Stable. Afebrile. General: Well-nourished and well-developed. Head: Normocephalic atraumatic. Neck: Supple, no lymphadenopathy. No JVD. Nontender. Cardiovascular: Regular rate and rhythm. No murmurs. Respiratory: No respiratory distress. Clear to auscultation bilaterally. Abdominal: Soft, mild diffuse tenderness palpation that is worst in the epigastric region, nondistended, normal bowel sounds. No guarding, rebound, or peritoneal signs. Back: Nontender. Extremities: Nontender, no edema. Skin: Normal color, no rash. Neurologic: Alert and oriented ?3. Cranial nerves II through XII are intact. Normal strength and sensation. Psych: Normal affect. Test Results: EKG is sinus at 78 with no acute changes. Troponin is negative. test is negative. UA is normal. LFTs marked for an ALT of 76 and AST 47. Chem-7 is normal. CBC is remarkable for a hemoglobin of 15.2. Emergency Department Course and Treatment: Patient had an IV placed. She was given a liter normal saline. She was given Zofran IV. She refused pain medications. Treatment Plan: Patient will be discharged with Zofran. Instructed to follow-up with Dr. Platt within 1 week for further evaluation and treatment. Return to the emergency department for any worsening symptoms. Disposition: To home in improved and stable condition. Impression: 1. Abdominal pain, uncertain cause. 2. Diarrhea. 3. Family history of ulcerative colitis. This note was generated with [employer] dictation software. It may contain incorrect words, spelling, and punctuation that were not noted in review of the chart prior to signing ED Disposition - Plan for ED Patient: Chief Complaint: Abd Pain Instructions: ED Abdominal Pain Unkn Cause Prescriptions: Ondansetron [Zofran Odt] 4 mg PO Q8H PRN PRN #10 tablet PRN Reason: Nausea Referrals: Gopal Duenas MD [STAFF PHYSICIAN] - 1 Week if not improving
[2018-04-03] MEDS: 0.9% Normal Saline 1,000 ML 1000 ML IV (12:24)
[2018-04-03] MEDS: Ondansetron 4 MG/2 ML Vial IV (12:24)
[2018-04-03 12:25] VITALS: TEMP 36.3
[2018-04-03 12:50] LABS: Absolute Lymphocyte Count 1.53 X10^3/ul (0.83-4.51); Absolute Neutrophil Count 4.6 X10^3/uL (2.0-7.7); Basophil# 0.02 X10^3/uL; Basophil% 0.3 % (0-1); Eosinophil# 0.12 X10^3/uL; Eosinophils% 1.8 % (0-5); Hematocrit 46.9 % (37-47); Hemoglobin 15.2 g/dl (12.0-15.0); Lymphocyte # 1.53 X10^3/ul (4.0); Lymphocyte % 22.6 % (19-41); Mean Corp Hgb Conc 32.4 g/gl (32-36); Mean Corpuscular Hgb 29.9 pg (27.0-32.0); Mean Corpuscular Volume 92.1 fL (81-99); Mean Platelet Vol. 8.8 fl (6.2-12.0); Monocyte# 0.47 X10^3/uL; Neutrophil # 4.61 X10^3/uL (2.7-7.7); Neutrophil % 68.2 % (47-70); Platelet Count 242 K/mm3 (150-450); RBC Distribution Width CV 12.8 % (11.6-14.6); RBC Distribution Width SD 42.6 fl (35.1-43.9); Red Blood Count 5.09 M/mm3 (4.2-5.4); White Blood Count 6.8 K/mm3 (4.4-11.0)
[2018-04-03 12:54] LABS: POSITIVE COUNT NO; POSITIVE DIFFERENTIAL NO; POSITIVE MORPHOLOGY NO
[2018-04-03 13:02] LABS: BUN 17 mg/dL (7-18); Creatinine, Serum 0.94 mg/dL (0.55-1.02); EST Glomerular Filtration Rate 71 mL/min (>60); Estimated Creatinine Clearance 91.59 ml/min; Glucose 88 mg/dL (74-106)
[2018-04-03 13:03] LABS: AST(SGOT) 47 U/L (15-37); Alanine Aminotransfer ALT/SGPT 76 U/L (13-56); Albumin, Serum 3.8 g/dL (3.2-5.0); Alkaline Phosphatase 72 U/L (45-117); Anion Gap 11 (5-15); Calcium,Total 8.9 mg/dL (8.5-10.1); Chloride 103 mmol/L (98-107); Est Glom Filt Rate - Afr Amer 86 mL/min (>60); Lipase 117 U/L (73-393); Potassium 4.1 mmol/L (3.5-5.1); Protein, Total 7.8 g/dL (6.4-8.2); Sodium Level 140 mmol/L (136-145)
[2018-04-03 13:05] LABS: Pregnancy, Serum, hCG Quali. NEGATIVE Negative (0-9 Nonpreg)
[2018-04-03 13:16] LABS: Bacteria 0 SEEN /hpf (None Seen); Mucous, Urine 0 SEEN /hpf (<or=2+); Red Blood Cells-Urine 0 SEEN /hpf (0-5); White Blood Cells 0 SEEN /hpf (0-5)
[2018-04-03 13:24] LABS: Color, Urine Yellow (Yellow); Glucose, Dipstick Normal (Normal); Ketone-Dipstick Negative (Negative); Leukocyte Esterase-Dipstick Negative /ul (Negative); Nitrite-Dipstick Negative (Negative); Occult Blood-Urine Negative /ul (Negative); Protein-Dipstick Negative (Negative); Specific Gravity, Urine 1.015 (1.002-1.030); Urine Bilirubin Dipstick Negative (Negative); Urine Clarity Clear (Clear); Urine Urobilinogen Normal (Normal)
[2018-04-03 13:30] LABS: Squamous Epithelial Cells - UA 0-5 SEEN /hpf (5-10)
[2018-04-03 14:21] VITALS: BP 145/108; PULSE 80; RESP 18; O2SAT 98
--- NOTE | 2018-04-03 14:23 | ED.RN ---
pt bp elevated. pt states has not been taking any of her bp meds. dr malin
== END 2018-04-03 14:25 | disposition home or self-care (01) ==
LOC: ED 12:47
PROVIDERS: Emergency Provider Emergency Medicine; Family Provider Family Medicine; PCP Family Medicine
DX: R19.7 Diarrhea, unspecified (principal); I10 Essential (primary) hypertension; R30.0 Dysuria; R35.0 Frequency of micturition; R10.9 Unspecified abdominal pain; Z87.440 Personal history of urinary (tract) infections; Z87.19 Personal history of other diseases of the digestive system; Z83.79 Family history of other diseases of the digestive system
CPT/HCPCS: 80053; 81001; 83690; 84484; 84703; 85025; 93005; 96361; 96374; 99283; J7030; A4216; J2405

== ENCOUNTER 2018-06-02 14:24 | Emergency (ER) | payer SELFPAY ==
[2018-06-02 14:25] VITALS: BP 175/112; PULSE 75; RESP 16; TEMP 37.1; O2SAT 100; BMI 37.6
--- NOTE | 2018-06-02 15:03 | CT_ITS ---
STUDY: CTA OF THE BRAIN REASON FOR EXAM: Female, 38 years old. Fell in shower. Pain base of skull. Numbness right side of face. RADIATION DOSAGE (If Supplied By Facility): CTDIvol = ( 24.30 ) mGy, DLP = ( 2156.48 ) mGycm TECHNIQUE: CT angiography was performed with a multi-detector CT scanner. Data acquisition was obtained from the skull base through the vertex following intravenous administration of Isovue 370 100ml IV. MIP images were reconstructed from the axial data set. Post-processing of the angiographic images was performed, with multiplanar reformation and 3D reconstruction. Suboptimal technique with venous contamination. Individualized dose optimization techniques were used for this CT. COMPARISON: None. FINDINGS: Normal bilateral petrous carotid arteries. Normal right cavernous carotid artery with a normal supraclinoid bifurcation. Normal left cavernous carotid artery with a normal supraclinoid bifurcation. Normal right A1 segments of the anterior cerebral artery. Normal left A1 segments of the anterior cerebral artery. Normal intact anterior communicating artery (ACOM). Normal bilateral A2 segments of the anterior cerebral arteries. Normal right M1 and M2 segments of the middle cerebral arteries, with a normal M1 bifurcation. Normal left M1 and M2 segments of the middle cerebral arteries, with a normal M1 bifurcation. Normal right posterior communicating artery (PCOM). Normal left posterior communicating artery (PCOM). Normal bilateral vertebral arteries. Normal basilar artery with a normal basilar bifurcation. The visualized bilateral superior cerebellar (SCA) arteries are normal. Normal bilateral P1, P2 and visualized P3 segments of the posterior cerebral arteries. There is no demonstrated aneurysm of the [place]. There is no demonstrated abnormality of the visualized brain. CT/CTA Head W/WO Contrast IMPRESSION: Normal [place] without a demonstrated aneurysm or hemodynamically significant stenosis. Electronically Signed: Ganesh Pringle MD at 16:50 EDT , Service support ,
--- NOTE | 2018-06-02 15:04 | CT_ITS ---
STUDY: CT CERVICAL SPINE WITHOUT CONTRAST REASON FOR EXAM: Female, 38 years old. : [place]. Pain base of skull. Numbness right side of face. RADIATION DOSAGE (If Supplied By Facility): CTDIvol = ( 24.30 ) mGy, DLP = ( 2156.48 ) mGycm TECHNIQUE: High resolution transaxial imaging was performed without contrast material. Sagittal and coronal images were reconstructed. Individualized dose optimization techniques were used for this CT. COMPARISON: None FINDINGS: Normal craniovertebral junction. Normal anterior atlantoaxial articulation. Normal odontoid process. Normal cervical lordosis. Normal vertebral bodies and posterior osseous elements. C2-3: Normal endplates. Normal disc height and morphology. Normal central canal and intervertebral neuroforamina. C3-4: Normal endplates. Normal disc height and morphology. Normal central canal and intervertebral neuroforamina. C4-5: Normal endplates. Normal disc height and morphology. Normal central canal and intervertebral neuroforamina. C5-6: Normal endplates. Normal disc height and morphology. Normal central canal and intervertebral neuroforamina. C6-7: Normal endplates. Normal disc height and morphology. Normal central canal and intervertebral neuroforamina. C7-T1: Not included within the [id number]. Normal visualized soft tissue structures. CT/Spine Cervical without Contras IMPRESSION: Incomplete exam. C7-T1 is not included within the [id number]. Otherwise normal CT cervical spine C1-C6. Electronically Signed: Ganesh Pringle MD at 16:35 EDT , Service support ,
--- NOTE | 2018-06-02 15:06 | ED.VISSUMM ---
- ER Visit Summary Date of Service: 06/02/18 Chief Complaint: Fall History of Present Illness: The patient is a 38 F presenting after mechanical fall. Patient states she turned while in the shower, she was stepping out and slipped and fell. She hit her head but she did not lose consciousness. No amnesia to the event. She has nausea with no vomiting. She hit the back of her head. She complains of neck pain, headache, right shoulder pain. She denies shortness of breath. She complains of tingling right side of her face. She arrived per EMS with c-collar in place. Physical Examination: Vitals are stable. Patient is afebrile. Alert no acute distress. HEENT exam is unremarkable. Neck is mild diffuse tenderness with no step-off Lungs are clear and equal bilaterally. Heart is regular rate and rhythm. Abdomen is soft nontender nondistended. Extremities right anterior shoulder tenderness with painful range of motion Skin is warm and dry. No focal neurologic deficit. Normal strength and sensation Remainder of exam is unremarkable. Emergency Department Course and Treatment: Patient was given morphine, Zofran IV. Right shoulder and right rib series showed no acute process. CTA head and neck show no acute process. CT cervical spine incomplete exam. C7-T1 is not included within the [id number]. Otherwise normal CT cervical spine C1-C6. Discussed with radiology. Additional axial images were sent. Addendum shows additional axial images obtained through C7-T1 are now provided and appear normal. On reevaluation, patient is resting comfortably. She does state she has not taken her blood pressure medicine in some time. She states she has her blood pressure medicine available to her and will take it when she gets home. She was given 1 dose of clonidine in the ED with improvement of her blood pressure. She is given a prescription for short course of [place] and zofran. Advised to follow-up with primary care physician. Advised return to ED if worsening complaints. Disposition: Discharge home Impression: Neck strain, closed head injury, right shoulder contusion, status post mechanical fall This note was generated with [employer] [facility] dictation software. It may contain incorrect words, spelling, and punctuation that were not noted in review of the chart prior to signing ED Disposition - Plan for ED Patient: Instructions: ED Mechanical Fall Prescriptions: Hydrocodone Bitart/Apap 5-325 [[place] 5MG-325MG] 1 tablet PO Q6H PRN PRN 3 Days #8 tablet PRN Reason: Pain Ondansetron [Zofran Odt] 4 mg PO Q8H PRN PRN #10 tablet PRN Reason: Nausea Referrals: Dennis Sosa MD [Primary Care Provider] -
--- NOTE | 2018-06-02 15:09 | ED.DCSUM_ITS ---
- ER Visit Summary Date of Service: 06/02/18 Chief Complaint: Fall History of Present Illness: The patient is a 38 F presenting after mechanical fall. Patient states she turned while in the shower, she was stepping out and slipped and fell. She hit her head but she did not lose consciousness. No amnesia to the event. She has nausea with no vomiting. She hit the back of her head. She complains of neck pain, headache, right shoulder pain. She denies shortness of breath. She complains of tingling right side of her face. She arrived per EMS with c-collar in place. Physical Examination: Vitals are stable. Patient is afebrile. Alert no acute distress. HEENT exam is unremarkable. Neck is mild diffuse tenderness with no step-off Lungs are clear and equal bilaterally. Heart is regular rate and rhythm. Abdomen is soft nontender nondistended. Extremities right anterior shoulder tenderness with painful range of motion Skin is warm and dry. No focal neurologic deficit. Normal strength and sensation Remainder of exam is unremarkable. Emergency Department Course and Treatment: Patient was given morphine, Zofran IV. Right shoulder and right rib series showed no acute process. CTA head and neck show no acute process. CT cervical spine incomplete exam. C7-T1 is not included within the [id number]. Otherwise normal CT cervical spine C1-C6. Discussed with radiology. Additional axial images were sent. Addendum shows ad ditional axial images obtained through C7-T1 are now provided and appear normal. On reevaluation, patient is resting comfortably. She does state she has not taken her blood pressure medicine in some time. She states she has her blood pressure medicine available to her and will take it when she gets home. She was given 1 dose of clonidine in the ED with improvement of her blood pressure. She is given a prescription for short course of [place] and zofran. Advised to follow-up with primary care physician. Advised return to ED if worsening complaints. Disposition: Discharge home Impression: Neck strain, closed head injury, right shoulder contusion, status post mechanical fall This note was generated with [employer] dictation software. It may contain incorrect words, spelling, and punctuation that were not noted in review of the chart prior to signing ED Disposition - Plan for ED Patient: Instructions: ED Mechanical Fall Prescriptions: Hydrocodone Bitart/Apap 5-325 [[place] 5MG-325MG] 1 tablet PO Q6H PRN PRN 3 Days #8 tablet PRN Reason: Pain Ondansetron [Zofran Odt] 4 mg PO Q8H PRN PRN #10 tablet PRN Reason: Nausea Referrals: Dennis Sosa MD [Primary Care Provider] -
[2018-06-02] MEDS: Ondansetron 4 MG/2 ML Vial IV ×2 (15:12→18:01)
--- NOTE | 2018-06-02 15:50 | CT_ITS ---
STUDY: CTA NECK WITH CONTRAST REASON FOR EXAM: Female, 38 years old. Fell in shower. Pain base of skull. Numbness right side of face. RADIATION DOSAGE (If Supplied By Facility): CTDIvol = ( 24.30 ) mGy, DLP = ( 2156.48 ) mGycm TECHNIQUE: CT angiography with multi-detector data acquisition was performed from the aortic arch to the skull base following intravenous administration of Isovue 370 100ml IV. MIP images were reconstructed from the axial data set. Post-processing of the angiographic images was performed, with multiplanar reformation and 3D reconstruction. Individualized dose optimization techniques were used for this CT. COMPARISON: None. FINDINGS: AORTIC ARCH: Normal visualized aortic arch. Normal origins of the brachiocephalic, left common carotid, and left subclavian arteries. RIGHT CAROTID ARTERIES: Normal right common carotid artery (CCA). Normal right common carotid bulb. Normal origin of the right internal carotid (ICA) artery without a hemodynamically significant stenosis. Normal visualized cervical portion of the right internal carotid artery. Normal origin of the right external carotid artery (ECA). LEFT CAROTID ARTERIES: Normal left common carotid artery (CCA). Normal left common carotid bulb. Normal origin of the left internal carotid (ICA) artery without a hemodynamically significant stenosis. Normal visualized cervical portion of the left internal carotid artery. Normal origin of the left external carotid artery (ECA). VERTEBRAL ARTERIES: Normal bilateral vertebral arteries. CT/CTA Neck W/WO Contrast IMPRESSION: Normal bilateral cervical carotid and vertebral arteries. Electronically Signed: Ganesh Pringle MD at 16:55 EDT , Service support ,
--- NOTE | 2018-06-02 15:50 | RAD_ITS ---
STUDY: X-RAY - RIGHT SHOULDER REASON FOR EXAM: Female, 38 years old. Fell and injured right shoulder TECHNIQUE: 2 view(s) of the shoulder. COMPARISON: None. FINDINGS: Normal glenohumeral articulation. Normal acromioclavicular joint. Normal acromion. Normal humeral head and visualized proximal humerus. The soft tissue structures are unremarkable. Normal visualized pulmonary apex. RAD/Shoulder min 2 Views IMPRESSION: Normal x-ray examination of the shoulder. Electronically Signed: Ganesh Pringle MD at 17:01 EDT , Service support ,
--- NOTE | 2018-06-02 15:50 | RAD_ITS ---
STUDY: X-RAY - UNILATERAL RIBS ( RIGHT ) WITH CHEST REASON FOR EXAM: Female, 38 years old. Sagittal and right TECHNIQUE - RIBS: 4 view(s) of the ribs. TECHNIQUE - CHEST: 1 view frontal COMPARISON: June 10, 2017 FINDINGS - RIBS: Normal visualized ribs without a demonstrated fracture. FINDINGS - CHEST: The lungs are clear and expanded. There is no demonstrated pleural abnormality. Normal size heart. Normal mediastinum and zheng. Normal visualized pulmonary arteries. Normal visualized aortic arch and descending thoracic aorta. Normal visualized thoracic spine. Normal visualized ribs, clavicles, and shoulders. There is no demonstrated abnormality of the visualized soft tissue structures of the upper abdomen. RAD/Ribs Uni Min 3V w/PA Chest IMPRESSION: RIBS: Normal x-ray examination of the ribs. CHEST: Normal x-ray examination of the chest. Electronically Signed: Ganesh Pringle MD at 17:03 EDT , Service support ,
[2018-06-02] MEDS: Morphine 4 MG/ML Syringe IV ×2 (16:17→17:46)
[2018-06-02 16:30] VITALS: PULSE 88; RESP 16; O2SAT 99
[2018-06-02 17:33] VITALS: PULSE 89; RESP 16; O2SAT 98
[2018-06-02 17:47] VITALS: BP 176/122; PULSE 64; RESP 18; O2SAT 100
--- NOTE | 2018-06-02 19:19 | ED.DEP ---
ED Disposition - Plan for ED Patient: Instructions: ED Mechanical Fall Prescriptions: Hydrocodone Bitart/Apap 5-325 [[place] 5MG-325MG] 1 tablet PO Q6H PRN PRN 3 Days #8 tablet PRN Reason: Pain Ondansetron [Zofran Odt] 4 mg PO Q8H PRN PRN #10 tablet PRN Reason: Nausea Referrals: Dennis Sosa MD [Primary Care Provider] -
[2018-06-02 19:24] VITALS: BP 173/113; PULSE 78; RESP 16; O2SAT 97
[2018-06-02] MEDS: Clonidine HCl 0.1 MG, Clonidine HCl 0.2 MG 0.3 MG PO (19:43)
--- NOTE | 2018-06-02 19:44 | ED.RN ---
PER DR HOU, THIS NURSE WAS ADVISED TO ONLY GIVE 0.2 MG OF CATAPRES
[2018-06-02 20:29] VITALS: BP 178/112; PULSE 72; RESP 12; O2SAT 97
--- NOTE | 2018-06-02 20:39 | ED.RN ---
Iv was removed and pt instructed not to drive. family at bedside. besty fernandes rn [id number]
== END 2018-06-02 20:39 | disposition home or self-care (01) ==
LOC: ED 15:13
PROVIDERS: Emergency Provider Emergency Medicine; Family Provider Family Medicine; PCP Family Medicine
DX: S16.1XXA Strain of muscle, fascia and tendon at neck level, initial encounter (principal); S09.90XA Unspecified injury of head, initial encounter; S40.011A Contusion of right shoulder, initial encounter; W01.0XXA Fall on same level from slipping, tripping and stumbling without subsequent striking against object, initial encounter; Y93.E1 Activity, personal bathing and showering; Y92.9 Unspecified place or not applicable; Y99.9 Unspecified external cause status; I10 Essential (primary) hypertension; R11.0 Nausea; R20.2 Paresthesia of skin
CPT/HCPCS: 70496; 70498; 71101; 72125; 73030; 96374; 96375; 96376; 99285; Q9967; A4216; J2405

== ENCOUNTER 2018-08-24 08:21 | Inpatient (IN) | payer OTHER, SELFPAY ==
[2018-08-24 08:25] VITALS: BMI 38.3; BMI 38.7
[2018-08-24 08:47] VITALS: BP 146/86; PULSE 66; RESP 20; TEMP 36.9; O2SAT 100
--- NOTE | 2018-08-24 09:19 | HP.PCM_ITS ---
Problem List (1) Incarcerated ventral hernia Status: Resolved (2) Depression Status: Chronic (3) Migraine Status: Chronic (4) Urinary tract infection Status: Resolved (5) Acute pyelonephritis Status: Suspected (6) Small bowel obstruction Status: Acute History of Present Illness Date of Admission: 08/24/18 Chief Complaint: abdominal pain The patient is a 38 year old F with history of incarcerated ventral hernia with mesh repair in 2018 is directly admitted from [facility] for abdominal pain, nausea and CT finding of early small bowel obstruction. Last night, about 10 PM on 08/23/2018 patient fell abdominal pain mainly around umbilical region which became soon diffuse, severe, continuous over 3 to 4 hours with radiation to left shoulder. This was associated with nausea but she did not had vomiting. She did not had bowel movement for last 2 days and not sure about passing flatus. She had appendectomy, cholecystectomy and laparoscopic ventral hernia repair with mesh in [address] Platt. Had EGD prior to surgery. Although no official report available but verbally she said it was found does not possibly in esophagus and stomach. Patient sometimes takes PPI but not compliant with it. In ER, the patient was hemodynamically stable, heart rate in 70s, respiratory rate 20, pulse ox 100% on room air. Patient took 3 doses of ibuprofen before going to ER and got morphine 4 MG, 2 dosages, Toradol and Zofran. Lab results by enlarged normal, K3.9, bicarb 26, anion gap 9 and glucose 92. LFT normal. CBC normal. Lipase 83. CT abdomen with IV contrast was done and reported as abnormal bowel pattern involving the small bowel with distention and thickening and some surrounding edema. Early small bowel obstruction although precise transition point not clearly identified. [] Past Medical History Past Medical History (Chronic Problems): Chronic Problems (This Medical Record has been edited. Action required.) Depression (Chronic) Migraine (Chronic) Allergies adhesive tape Adverse Reaction (Verified 06/02/18 14:24) Rash metronidazole [From Flagyl] Adverse Reaction (Verified 06/02/18 14:24) Vomiting naproxen Adverse Reaction (Verified 06/02/18 14:24) Upset Stomach NSAIDS (Non-Steroidal Anti-Inflamma Adverse Reaction (Verified 06/02/18 14:24) Upset Stomach Home Medications: Ambulatory Orders Medication Instructions Recorded Ondansetron [Zofran Odt] 4 mg PO Q8H PRN PRN #10 tablet 06/02/18 Surgical History: appendectomy, tonsillectomy, - - LEEP for cervix Psychiatric History: Depression 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 Denies: Hematemesis, Hematochezia, Melena, Vomiting Genitourinary: Denies: Dysuria, Frequency Musculoskeletal: Denies: Joint Pain, Joint Tenderness Skin: Denies: Rash, Wounds Neurological: Denies: Numbness, Tingling, Focal weakness Psychiatric: Denies: Anxiety, Depression, Homicidal Ideations, Suicidal Ideations Hematologic/ Lymphatic: Denies: Easy Bruising, Easy Bleeding VTE Information - Inpt Only VTE Present on Admission: No VTE Mechan Device Prophylaxis: None VTE Pharm Prophylaxis ordered?: Yes Patient Problems: Active and Suspected Problems (This Medical Record has been edited. Action required.) Small bowel obstruction (Acute) - Physical Exam General: Alert, Oriented x3, Cooperative HEENT: Atraumatic, PERRLA, EOMI, Normocephalic Neck: Supple, No JVD, Negative Carotid Bruits Lungs: Clear to auscultation, No rhonchi, No wheeze, No rales, Diminished - Air entry diminished bilaterally Cardiovascular: Regular rate, No murmurs Abdomen: Bowel Sounds Present, Soft, Non-Distended, Hypoactive Bowel Sounds, Tender - Numbness present on umbilical and right lower quadrant. Extremities: No edema, Capillary Refill Less than 3 Seconds Skin: No rashes, No breakdown Musculoskeletal: No Tenderness to Palpation of Joints or Extremities Neurological: Cranial nerves II-XII grossly intact, Deep Tendon Reflexes 2+/4 and Symmetrical, Neuro grossly intact Psych/Mental Status: Normal Affect, Appropriate Vital Signs Temp Pulse Resp BP Pulse Ox 98.5 F 66 20 H 146/86 H 100 08/24/18 08:47 08/24/18 08:47 08/24/18 08:47 08/24/18 08:47 08/24/18 08:47 Oxygen Delivery Method Room Air Weight: 278 lb Body Mass Index (BMI) 38.7 Assessment/Plan All Active Problems (This Medical Record has been edited. Action required.) Incarcerated ventral hernia (Resolved) Small bowel obstruction (Acute) Urinary tract infection (Resolved) The patient is a 38 year old F with history of incarcerated ventral hernia with mesh repair in 2018 is directly admitted from [facility] for abdominal pain, nausea and CT finding of early small bowel obstruction. This was associated with nausea but she did not had vomiting. She did not had bowel movement for last 2 days and not sure about passing flatus. She had appendectomy, cholecystectomy and laparoscopic ventral hernia repair with mesh in [address] Platt. Had EGD prior to surgery. Although no official report available but verbally she said it was found does not possibly in esophagus and stomach. Patient sometimes takes PPI but not compliant with it. Lab results by enlarged normal, K3.9, bicarb 26, anion gap 9 and glucose 92. LFT normal. CBC normal. Lipase 83. CT abdomen with IV contrast was done and reported as abnormal bowel pattern involving the small bowel with distention and thickening and some surrounding edema. Early small bowel obstruction although precise transition point not clearly identified. 1. Early small bowel obstruction, most probably kinking/small adhesion from previous surgeries: The patient is being admitted Medr floor. CD of the CT abdomen sent to radiology to upload it. General surgery consult. On conservative management for bowel obstruction with n.p.o., IV fluid Ringer lactate, monitor intake and output. Will hold off putting NG tube if patient is not vomiting. Patient may need serial KUB to further see the course of bowel obstruction. 2. Possible peptic ulcer disease/erosive esophagitis: On IV PPI. 3. Hypertension: Blood pressure is 146/86. Patient is not on antihypertensive medication. Will monitor if needed IV hydralazine as needed for systolic blood pressure more than 160. 4. Surgical history of an incarcerated ventral hernia status post laparoscopic mesh repair, cholecystectomy and appendectomy: DVT moderate risk: On Lovenox 40 minutes subcu daily. Code Visit Inpatient E&M: 50056 Init Hosp L3
[2018-08-24 09:32] LABS: Absolute Lymphocyte Count 2.03 X10^3/ul (0.83-4.51); Absolute Neutrophil Count 6.5 X10^3/uL (2.0-7.7); Basophil# 0.02 X10^3/uL; Basophil% 0.2 % (0-1); Eosinophil# 0.11 X10^3/uL; Eosinophils% 1.2 % (0-5); Hematocrit 43.1 % (37-47); Hemoglobin 14.4 g/dl (12.0-15.0); Lymphocyte # 2.03 X10^3/ul (4.0); Lymphocyte % 22.1 % (19-41); Mean Corp Hgb Conc 33.4 g/gl (32-36); Mean Corpuscular Hgb 29.8 pg (27.0-32.0); Mean Platelet Vol. 8.4 fl (6.2-12.0); Monocyte# 0.56 X10^3/uL; Monocyte% 6.1 % (0-10); Neutrophil # 6.46 X10^3/uL (2.7-7.7); Neutrophil % 70.3 % (47-70); Platelet Count 235 K/mm3 (150-450); RBC Distribution Width CV 12.8 % (11.6-14.6); RBC Distribution Width SD 41.5 fl (35.1-43.9); Red Blood Count 4.84 M/mm3 (4.2-5.4); White Blood Count 9.2 K/mm3 (4.4-11.0)
[2018-08-24 09:34] LABS: POSITIVE COUNT NO; POSITIVE DIFFERENTIAL NO; POSITIVE MORPHOLOGY NO
[2018-08-24] MEDS: Lactated Ringers 1,000 ML 100 ML IV ×2 (09:39→18:58)
[2018-08-24] MEDS: proMETHazine 25 MG/ML Syringe 12.5 MG IV ×2 (09:39→16:56)
[2018-08-24] MEDS: HYDROmorphone 0.5 MG/0.5 ML SYRINGE IV ×2 (10:00→14:01)
[2018-08-24] MEDS: Enoxaparin 40 MG/0.4 ML Syringe SC (10:07)
--- NOTE | 2018-08-24 10:57 | CON.PCM_ITS ---
Reason for Consult Date of Consultation: 08/24/18 Reason for Consultation: partial small bowel obstruction History of Present Illness: The patient is a 38 year old F who noted the onset of abdominal pain yesterday which became increasingly severe. The patient notes vague abdominal discomfort which at times crescendos to more severe pain radiating up to her left shoulder. She notes no flatus since this pain started. She notes some degree of nausea but this is improved with IV Phenergan administration. She denies vomiting. I had seen the patient in the past for right upper quadrant pain. She underwent a laparoscopic cholecystectomy with intraoperative cholangiogram on December 31, 2016. she then presented to [facility] on June 06, 2017 with complaints of abdominal pain and a bulge at her previous umbilical incision. At that time CT scan demonstrated incarcerated incisional hernia at the level of umbilicus. This was able to be partially reduced in the emergency department. She is brought to the operating suite and underwent laparoscopic reduction and repair with an 11 by 14cm ventrio [address] mesh. with Botox suture fixation and secure strap tacking. 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 She followed up in our office on July 02, 2017 with complaint of point tenderness on the right lateral edge of the mesh repair site with no signs of recurrent hernia formation. she presented to the freestanding Emergency department in [place]. laboratory studies were unremarkable. CT scan of the abdomen and pelvis was obtained with IV but no oral contrast. This demonstrated was felt to be a partial small bowel obstruction without obvious transition point. The patient was transferred to [facility] for our care. I reviewed the CT scan. I see no signs of mesh displacement or bowel inserted between the mesh/internal strangulation. I question whether there is a transition point at the right lateral aspect of her hernia repair site. There is mild bowel and gastric distention prior to that area with some normal caliber bowel and air in the colon following that point. I agree this is consistent with partial small bowel obstruction. the patient's past medical history as her previous ovarian cysts obesity hypertension and borderline diabetes. previous surgical procedures include appendectomy in 2004, previous upper and lower endoscopies, laparoscopic cholecystectomy and hernia repair as noted. Prior in 2014. Tonsils and adenoidectomy. Past Medical History Past Medical History (Chronic Problems): Chronic Problems (This Medical Record has been edited. Action required.) Depression (Chronic) Migraine (Chronic) Allergies adhesive tape Adverse Reaction (Verified 08/24/18 09:48) Rash metronidazole [From Flagyl] Adverse Reaction (Verified 08/24/18 09:48) Vomiting naproxen Adverse Reaction (Verified 08/24/18 09:48) Upset Stomach NSAIDS (Non-Steroidal Anti-Inflamma Adverse Reaction (Verified 08/24/18 09:48) Upset Stomach Home Medications: Ambulatory Orders Medication Instructions Recorded Ondansetron [Zofran Odt] 4 mg PO Q8H PRN PRN #10 tablet 06/02/18 Hydrochlorothiazide 12.5 mg PO DAILY 08/24/18 Lactobacillus Acidophilus 1 each PO LUNCH 08/24/18 [Probiotic] Lisinopril 20 mg PO DAILY 08/24/18 Surgical History: appendectomy, tonsillectomy, - - LEEP for cervix Psychiatric History: Depression 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 Denies: Chills, Fever, Weight Change HEENT: Denies: Head Aches, Sinus Congestion, Sinus Drainage Cardiovascular: Denies: Chest Pain, Palpitations Respiratory: Denies: Cough, Shortness of breath at rest, Sputum production Gastrointestinal: Reports: Abdominal Pain, Nausea. Denies: Vomiting Genitourinary: Denies: Dysuria Musculoskeletal: Denies: Joint Pain, Joint Tenderness Skin: Denies: Rash, Wounds Neurological: Denies: Numbness, Tingling, Focal weakness Psychiatric: Denies: Anxiety, Depression, Homicidal Ideations, Suicidal Ideations Hematologic/ Lymphatic: Denies: Easy Bruising, Easy Bleeding Patient Problems: Active and Suspected Problems (This Medical Record has been edited. Action required.) Small bowel obstruction (Acute) - Physical Exam General: Alert, Oriented x3, Cooperative HEENT: Atraumatic, PERRLA, EOMI, Normocephalic Neck: Supple, No JVD, Negative Carotid Bruits Lungs: Clear to auscultation, Normal air movement Cardiovascular: Regular rate, No murmurs Abdomen: Bowel Sounds Present, Soft, Non Tender, Hypoactive Bowel Sounds, Tender - mild diffusely tender without peritoneal signs Extremities: No edema, Capillary Refill Less than 3 Seconds Skin: No rashes, No breakdown Musculoskeletal: No Tenderness to Palpation of Joints or Extremities Neurological: Cranial nerves II-XII grossly intact Psych/Mental Status: Normal Affect, Appropriate Vital Signs Temp Pulse Resp BP Pulse Ox 98.5 F 66 20 H 146/86 H 100 08/24/18 08:47 08/24/18 08:47 08/24/18 08:47 08/24/18 08:47 08/24/18 08:47 Oxygen Delivery Method Room Air Weight: 126.099 kg Body Mass Index (BMI) 38.7 Laboratory Tests Past 24 Hrs 08/24/18 09:20 WBC 9.2 RBC 4.84 Hgb 14.4 Hct 43.1 MCV 89.0 MCH 29.8 MCHC 33.4 RDW 12.8 RDW Differential 41.5 Plt Count 235 MPV 8.4 Immature Gran % (Auto) 0.100 Neut % (Auto) 70.3 H Lymph % (Auto) 22.1 [place] % (Auto) 6.1 Eos % (Auto) 1.2 Baso % (Auto) 0.2 Absolute Neuts (auto) 6.5 Absolute Lymphs (auto) 2.03 Total Counted Not Reportable Assessment/Plan All Active Problems (This Medical Record has been edited. Action required.) Incarcerated ventral hernia (Resolved) Small bowel obstruction (Acute) Urinary tract infection (Resolved) likely adhesive partial small bowel obstruction Agree with admitting the patient for IV fluid resuscitation/hydration and maintain nothing by mouth status. If the patient becomes nauseated and/or vomits further would recommend NG tube insertion. We'll plan for serial abdominal exams and follow-up abdominal series to assess for progression. I discussed with the patient that 70% of post surgical small bowel obstructions resolve with conservative treatment. We discussed that worsening pain or worsening laboratory or radiologic parameters might necessitate surgical intervention
--- NOTE | 2018-08-24 12:34 | PCA ---
rn in with pt
[2018-08-24 14:00] VITALS: BP 114/79; PULSE 69; RESP 16; TEMP 36.9; O2SAT 98
[2018-08-24] MEDS: Ondansetron 4 MG/2 ML Vial IV (14:01)
--- NOTE | 2018-08-24 16:00 | NURSING ---
Aware of Vitals that were taken at 1400 today by Lory Landin RN.
[2018-08-24] MEDS: Morphine 2 MG/ML Syringe IV (16:54)
[2018-08-24 22:18] VITALS: BP 129/82; PULSE 70; RESP 16; TEMP 36.9; O2SAT 96
[2018-08-25 02:55] VITALS: BP 115/71; PULSE 74; RESP 18; TEMP 36.9; O2SAT 97
[2018-08-25] MEDS: Ondansetron 4 MG/2 ML Vial IV ×3 (02:58→21:33)
[2018-08-25] MEDS: HYDROmorphone 0.5 MG/0.5 ML SYRINGE IV ×4 (03:00→18:20)
[2018-08-25] MEDS: Lactated Ringers 1,000 ML 100 ML IV ×2 (03:01→13:56)
--- NOTE | 2018-08-25 05:00 | RAD_ITS ---
STUDY: X-RAY - ABDOMEN/PELVIS REASON FOR EXAM: Female, 38 years old. Small bowel obstruction. TECHNIQUE: AP supine and upright views of the abdomen and pelvis. COMPARISON: None. FINDINGS: Normal visualized lung bases. There is a moderate amount of colonic fecal material. There is no demonstrated free abdominal air. The visualized liver, spleen and kidneys are grossly normal in size and morphology. Evidence of prior ventral hernia repair. Prior tubal ligation. Normal visualized osseous structures. RAD/Abd Inc Decub and/or Erect IMPRESSION: Moderate amount of fecal material is seen in the colon. Electronically Signed: Chau Galindo, at 13:19 EDT , Service support ,
--- NOTE | 2018-08-25 06:31 | PCM.PN.SRG ---
Patient Problems: Active and Suspected Problems (This Medical Record has been edited. Action required.) Small bowel obstruction (Acute) Subjective: now flatus, still nauseated - Physical Exam General: Alert, Oriented x3, Cooperative Abdomen: Soft, Non Tender - to palpation, Hypoactive Bowel Sounds Vital Signs Temp Pulse Resp BP Pulse Ox 98.4 F 74 18 115/71 97 08/25/18 02:55 08/25/18 02:55 08/25/18 02:55 08/25/18 02:55 08/25/18 02:55 Oxygen Delivery Method Room Air Weight: 126.099 kg Body Mass Index (BMI) 38.7 Intake and Output for Last 24 Hours 08/23/18 08/24/18 08/25/18 23:59 23:59 23:59 Intake Total 1250 / 1250 1211 / 1211 Balance 1250 / 1250 1211 / 1211 Laboratory Tests Past 24 Hrs 08/24/18 09:20 WBC 9.2 RBC 4.84 Hgb 14.4 Hct 43.1 MCV 89.0 MCH 29.8 MCHC 33.4 RDW 12.8 RDW Differential 41.5 Plt Count 235 MPV 8.4 Immature Gran % (Auto) 0.100 Neut % (Auto) 70.3 H Lymph % (Auto) 22.1 [place] % (Auto) 6.1 Eos % (Auto) 1.2 Baso % (Auto) 0.2 Absolute Neuts (auto) 6.5 Absolute Lymphs (auto) 2.03 Total Counted Not Reportable Medical Necessity - Tobacco Use Smoking Status: Never smoker Assessment/Plan All Active Problems (This Medical Record has been edited. Action required.) Incarcerated ventral hernia (Resolved) Small bowel obstruction (Acute) Urinary tract infection (Resolved) likely adhesive partial small bowel obstruction Agree with admitting the patient for IV fluid resuscitation/hydration and maintain nothing by mouth status. If the patient becomes nauseated and/or vomits further would recommend NG tube insertion. We'll plan for serial abdominal exams and follow-up abdominal series to assess for progression. I discussed with the patient that 70% of post surgical small bowel obstructions resolve with conservative treatment. We discussed that worsening pain or worsening laboratory or radiologic parameters might necessitate surgical intervention. KUB this morning demonstrated air in colon and no small bowel air/fluid levels - ?ileus versus obstruction. May repeat CT scan with oral contrast
[2018-08-25] MEDS: Morphine 2 MG/ML Syringe IV (06:36)
[2018-08-25 06:50] VITALS: O2SAT 95
[2018-08-25 07:25] LABS: Absolute Lymphocyte Count 1.79 X10^3/ul (0.83-4.51); Basophil# 0.02 X10^3/uL; Basophil% 0.5 % (0-1); Eosinophil# 0.18 X10^3/uL; Eosinophils% 4.2 % (0-5); Hemoglobin 14.1 g/dl (12.0-15.0); Lymphocyte # 1.79 X10^3/ul (4.0); Lymphocyte % 41.8 % (19-41); Mean Corp Hgb Conc 33.6 g/gl (32-36); Mean Corpuscular Volume 89.4 fL (81-99); Mean Platelet Vol. 8.1 fl (6.2-12.0); Monocyte# 0.31 X10^3/uL; Monocyte% 7.2 % (0-10); Neutrophil # 1.98 X10^3/uL (2.7-7.7); Neutrophil % 46.3 % (47-70); POSITIVE COUNT NO; POSITIVE DIFFERENTIAL NO; POSITIVE MORPHOLOGY NO; Platelet Count 251 K/mm3 (150-450); RBC Distribution Width CV 12.7 % (11.6-14.6); RBC Distribution Width SD 41.4 fl (35.1-43.9); White Blood Count 4.3 K/mm3 (4.4-11.0)
--- NOTE | 2018-08-25 07:26 | PN_ITS ---
Patient Problems: Active and Suspected Problems (This Medical Record has been edited. Action required.) Small bowel obstruction (Acute) Subjective: The pt is a 38 YO female admitted on 08/24/18 with SBO, precise transition point not obvious. She has a hx of a ventral hernia with ventral hernia repair with mesh, cholecystectomy and appendectomy [place] [address] Duenas. She was seen in consultation by Dr. Duenas on 08/24 and he recommended hydration and maintaining NPO status. He recommended NG only if the pt starts vomiting. Passing flatus today. KUB with air in the colon and no small bowel air/fluid levels. Seen by Dr. Duenas today and he is considering a repeat CT with oral contrast. AF with stable VS's. Remains NPO. Has been ambulating in the halls and has had minimal flatus. She denies having any bowel movement. She has nausea but has not had an emesis. She tells me she feels bloated and not well. - Physical Exam General: Alert, Oriented x3, Cooperative, No apparent distress, Well developed, Well nourished HEENT: Atraumatic Oral: Moist Mucosa Cardiovascular: Regular rate, Regular Rhythm, Normal S1, Normal S2 Abdomen: Soft, Hypoactive Bowel Sounds, Tender - more so in the lower abd this afternoon rather than in the upper abd as it was before, - - no guarding with palpation no masses Vital Signs Temp Pulse Resp BP Pulse Ox 98.4 F 74 18 115/71 95 08/25/18 02:55 08/25/18 02:55 08/25/18 02:55 08/25/18 02:55 08/25/18 06:50 Oxygen Delivery Method Room Air Weight: 278 lb Body Mass Index (BMI) 38.7 Intake and Output for Last 24 Hours 08/23/18 08/24/18 08/25/18 23:59 23:59 23:59 Intake Total 1250 / 1250 1211 / 1211 Balance 1250 / 1250 1211 / 1211 Laboratory Tests Past 24 Hrs 08/24/18 08/25/18 08/25/18 09:20 07:14 07:14 WBC 9.2 Pending RBC 4.84 Pending Hgb 14.4 Pending Hct 43.1 Pending MCV 89.0 Pending MCH 29.8 Pending MCHC 33.4 Pending RDW 12.8 Pending RDW Differential 41.5 Pending Plt Count 235 Pending MPV 8.4 Immature Gran % (Auto) 0.100 Neut % (Auto) 70.3 H Pending Lymph % (Auto) 22.1 [place] % (Auto) 6.1 Eos % (Auto) 1.2 Baso % (Auto) 0.2 Absolute Neuts (auto) 6.5 Pending Absolute Lymphs (auto) 2.03 Total Counted Not Reportable Pending Sodium Pending Potassium Pending Chloride Pending Carbon Dioxide Pending Anion Gap Pending BUN Pending Creatinine Pending Est GFR (MDRD) Af Amer Pending Est GFR (MDRD) Non-Af Pending BUN/Creatinine Ratio Pending Glucose Pending Calcium Pending TSH Pending Medical Necessity - Tobacco Use Smoking Status: Never smoker Assessment/Plan All Active Problems (This Medical Record has been edited. Action required.) Incarcerated ventral hernia (Resolved) Small bowel obstruction (Acute) Urinary tract infection (Resolved) Impressions 1. SBO vs ileus 2. hx of a ventral hernia repair with mesh by Dr. Duenas in 2018 3. obesity 4. History of depression 5. Migraine cephalgia will contact Dr. Duenas to see if he wants to proceed with a CT of the abdomen with oral contrast. Keep NPO Code Visit Inpatient E&M: 50941 Subs Hosp L2
[2018-08-25 07:50] LABS: Anion Gap 6 (5-15); BUN 12 mg/dL (7-18); BUN/Creat Ratio 12.5 RATIO (10-20); Calcium,Total 8.2 mg/dL (8.5-10.1); Chloride 106 mmol/L (98-107); Creatinine, Serum 0.96 mg/dL (0.55-1.02); EST Glomerular Filtration Rate 69 mL/min (>60); Est Glom Filt Rate - Afr Amer 83 mL/min (>60); Estimated Creatinine Clearance 88.81 ml/min; Glucose 86 mg/dL (74-106); Potassium 3.8 mmol/L (3.5-5.1); Sodium Level 139 mmol/L (136-145); Thyroid Stim Hormone (TSH) 1.48 uIU/mL (0.358-3.74)
[2018-08-25] MEDS: proMETHazine 25 MG/ML Syringe 12.5 MG IV ×2 (08:10→18:20)
[2018-08-25 10:09] VITALS: BP 130/88; PULSE 77; RESP 16; TEMP 37.1; O2SAT 95
[2018-08-25] MEDS: Enoxaparin 40 MG/0.4 ML Syringe SC (10:11)
[2018-08-25] MEDS: Famotidine 20mg IV Push Syringe Q12 300 MG IV ×2 (10:11→21:25)
--- NOTE | 2018-08-25 13:56 | CASEMGMT ---
RN CM Assessment Presentation: SBO. Pt declining NG. Intro role of CM and purpose of RN CM assessment. Demographics, PCP and Pharmacy verified. PCP: Dr. Sosa Specialists: Dr. Duenas Preferred [facility]acy: [facility] Insurance: MMO Prescription Benefit: yes LNOK: Mother, Nichol Rojas Living Arrangements: Lives independently. No care needs Transportation: drives, works DME: none DC PLAN: Home on discharge. Rachel DIEZ RN ACM
[2018-08-25 14:04] VITALS: BP 133/86; PULSE 74; RESP 18; TEMP 37.2; O2SAT 94
--- NOTE | 2018-08-25 14:47 | CHAPLAIN ---
Type of Pastoral Visit _x__ Initial Visit ___ Follow-up Visit ___ On-call Visit ___ General Patient Visit ___ Spiritual Assessment ___ Family Conference ___ Bereavement ___ Rapid Response ___ Code Blue ___ Other (describe below) Pastoral Care Referral From _x__ Patient ___ Family ___ Nurse ___ Physician ___ Computer Hardware Developer ___ Billing Coordinator ___ Other (describe below) Sacrament/Intervention _x__ Active listening ___ Anointing ___ Scientologist ___ Bereavement ___ Communion ___ Magalis exploration ___ ___ Life review ___ Prayer ___ Reconciliation ___ Sacrament of Sick ___ Supportive presence ___ Wedding ___ Other (describe below) Pastoral Comments patient initiated conversation with this ecmo specialist as pt is walking the hallway
--- NOTE | 2018-08-25 16:22 | CT_ITS ---
STUDY: CT ABDOMEN AND PELVIS WITHOUT CONTRAST REASON FOR EXAM: Female, 38 years old. Abdominal pain, SBO. Incarcerated ventral hernia repair. RADIATION DOSAGE (If Supplied By Facility): CTDIvol = ( 20.66 ) mGy, DLP = ( 1197.58 ) mGycm TECHNIQUE: Transaxial images were obtained from the dome of the diaphragm to the symphysis pubis without oral contrast, and without intravenous contrast. Sagittal and coronal images were reconstructed. Individualized dose optimization techniques were used for this CT. COMPARISON: 06/06/2017. FINDINGS: Lung bases are clear. Visualized heart is normal. There is diffuse fatty infiltration of the liver. The gallbladder is not seen. The spleen and pancreas are unremarkable. The adrenal glands are normal. There is 1.5 cm low-attenuation lesion in the upper pole of the left kidney. This is not characterized without contrast but is unchanged in size compared to the prior study. The kidneys are otherwise unremarkable. No stones or hydronephrosis. The aorta is normal in caliber. There is no free fluid, free air, or organized collection. No bowel obstruction or inflammatory change. Urinary bladder is unremarkable. Markers from mesh repair are noted. There is no recurrent hernia. Mild degenerative changes of the lumbar spine are noted. CT/Abdomen/Pel W ORAL Cont Only IMPRESSION: 1. No acute findings. No recurrent hernia. 2. Hepatic steatosis. 3. Stable 1.5 cm left renal hypodensity. Electronically Signed: Haley Galindo MD at 19:57 EDT Tel , Service support ,
[2018-08-25] MEDS: 0.9% NaCl Peripheral Flush Adult/Peds IV ×3 (18:21→21:33)
[2018-08-25 21:30] VITALS: BP 136/85; PULSE 77; RESP 16; TEMP 37.1; O2SAT 97
[2018-08-26] MEDS: HYDROmorphone 0.5 MG/0.5 ML SYRINGE IV (00:57)
[2018-08-26] MEDS: proMETHazine 25 MG/ML Syringe 12.5 MG IV (00:57)
[2018-08-26] MEDS: 0.9% NaCl Peripheral Flush Adult/Peds IV ×3 (00:58→05:14)
[2018-08-26] MEDS: Lactated Ringers 1,000 ML 100 ML IV (01:03)
[2018-08-26 03:13] VITALS: BP 149/104; PULSE 68; RESP 14; TEMP 36.9; O2SAT 96
[2018-08-26 04:02] VITALS: BP 144/95; PULSE 73
[2018-08-26] MEDS: hydrALAZINE 20 MG/ML Vial 10 MG IV (04:02)
--- NOTE | 2018-08-26 04:50 | RAD_ITS ---
HISTORY: rt sided abd pain EXAMINATION/TECHNIQUE: XR Abdomen W/ Decub and/or Erect Views: Supine and upright views. COMPARISON: Radiograph and CT one day prior. FINDINGS: BOWEL GAS PATTERN: Non-obstructive. No bowel or stomach distention. Enteric contrast is now in the colon. FREE AIR: None apparent. ORGANOMEGALY: Not seen. CALCIFICATIONS: No abnormal calcifications observed. LOWER CHEST: No acute pathology. BONES AND SOFT TISSUES: No acute pathology. Tubal ligation clips in the pelvis. Markers from mesh repair again demonstrated mid abdomen. RAD/Abd Inc Decub and/or Erect IMPRESSION: Non-obstructive bowel gas pattern. No acute findings. at 0434 Reported and signed by: Yamil Nelson MD Electronically Signed: Yamil Nelson, at 4:32 EDT Tel , Service support ,
[2018-08-26] MEDS: Ondansetron 4 MG/2 ML Vial IV (05:14)
[2018-08-26] MEDS: Morphine 2 MG/ML Syringe IV (05:14)
--- NOTE | 2018-08-26 05:57 | PCM.PN.SRG ---
Patient Problems: Active and Suspected Problems (This Medical Record has been edited. Action required.) Small bowel obstruction (Acute) Subjective: scant flatus, abdominal pain somewhat improved - Physical Exam General: Alert, Oriented x3, Cooperative Lungs: Clear to auscultation, Normal air movement Cardiovascular: Regular rate, No murmurs Abdomen: Bowel Sounds Present, Soft, Non Tender Vital Signs Temp Pulse Resp BP Pulse Ox 98.4 F 73 14 144/95 H 96 08/26/18 03:13 08/26/18 04:02 08/26/18 03:13 08/26/18 04:02 08/26/18 03:13 Oxygen Delivery Method Room Air Weight: 126.099 kg Body Mass Index (BMI) 38.7 Intake and Output for Last 24 Hours 08/24/18 08/25/18 08/26/18 23:59 23:59 23:59 Intake Total 1250 / 1250 3024 / 3024 1091 / 1091 Output Total 500 / 500 Balance 1250 / 1250 3024 / 3024 591 / 591 Laboratory Tests Past 24 Hrs 08/25/18 08/25/18 07:14 07:14 WBC 4.3 L RBC 4.70 Hgb 14.1 Hct 42.0 MCV 89.4 MCH 30.0 MCHC 33.6 RDW 12.7 RDW Differential 41.4 Plt Count 251 MPV 8.1 Immature Gran % (Auto) 0.000 Neut % (Auto) 46.3 L Lymph % (Auto) 41.8 H [place] % (Auto) 7.2 Eos % (Auto) 4.2 Baso % (Auto) 0.5 Absolute Neuts (auto) 2.0 Absolute Lymphs (auto) 1.79 Total Counted Not Reportable Sodium 139 Potassium 3.8 Chloride 106 Carbon Dioxide 27.0 Anion Gap 6 BUN 12 Creatinine 0.96 Estim Creat Clear Calc 88.81 Est GFR (MDRD) Af Amer 83 Est GFR (MDRD) Non-Af 69 BUN/Creatinine Ratio 12.5 Glucose 86 Calcium 8.2 L TSH 1.48 Medical Necessity - Tobacco Use Smoking Status: Never smoker Assessment/Plan All Active Problems (This Medical Record has been edited. Action required.) Incarcerated ventral hernia (Resolved) Small bowel obstruction (Acute) Urinary tract infection (Resolved) likely gastroenteritis -Repeat CT scan with oral contrast demonstrated no obstruction. KUB this morning demonstrated air and contrast in colon and no small bowel air/fluid levels. Will restart home medications and start clear liquids
[2018-08-26 06:59] VITALS: BP 130/83; PULSE 72
[2018-08-26] MEDS: Lisinopril 20 MG Tablet PO (07:46)
[2018-08-26 09:51] VITALS: BP 141/86; PULSE 74; RESP 16; TEMP 37.2; O2SAT 97
[2018-08-26] MEDS: Enoxaparin 40 MG/0.4 ML Syringe SC (09:55)
[2018-08-26] MEDS: hydroCHLOROthiazide 12.5mg 12.5 MG PO (09:55)
[2018-08-26] MEDS: Famotidine 20mg IV Push Syringe Q12 300 MG IV (09:55)
--- NOTE | 2018-08-26 12:35 | DCINST_ITS ---
- Discharge Diagnoses Current Active Problems: Current Active and Chronic Problems (This Medical Record has been edited. Action required.) Small bowel obstruction (Acute) You will use the following diet at home:: High fiber - When you are feeling back to your baseline. I would stick to full liquids for another 24-48 hours. Your food should be the consistency of: Regular Your liquids should be the consistency of: Regular/Thin Discharge Activity: Return to Normal Activity Return to work on:: 08/28/18 Call your doctor if you observe: Fever of 101 or Higher, - - abdominal pain, nausea/vomiting, inability to have a BM Instructions: Eating a High-Fiber Diet, Discharge Instructions: Eating a Full Liquid Diet Additional Instructions: Some individuals have poor intestinal motility and they tend to get more problems with constipation and bowel obstructions. It is important to drink enough water to keep your urine a pale yellow. Try eating a high fiber diet and if you still have problems with bloating, nausea and abdominal pain try adding a stool softener such as Miralax of Metamucil. 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 I checked the thyroid and the TSH was WNL so this is not causing the slow motility. Pending Tests on Discharge: none Allergies/Adverse Reactions: Allergies adhesive tape Adverse Reaction (Verified 08/24/18 09:48) Rash metronidazole [From Flagyl] Adverse Reaction (Verified 08/24/18 09:48) Vomiting naproxen Adverse Reaction (Verified 08/24/18 09:48) Upset Stomach NSAIDS (Non-Steroidal Anti-Inflamma Adverse Reaction (Verified 08/24/18 09:48) Upset Stomach Medications to take at Discharge Ondansetron [Zofran Odt] 4 mg PO Q8H PRN PRN #10 tablet 06/02/18 Hydrochlorothiazide 12.5 mg PO DAILY 08/24/18 Lactobacillus Acidophilus [Probiotic] 1 each PO LUNCH 08/24/18 Lisinopril 20 mg PO DAILY 08/24/18 Primary Care Physician: Dennis Sosa MD [Primary Care Provider] - Please follow up with your Primary Care Physician in: 5-7 days Test Results: Test results from this visit will be discussed in further detail at your follow- up appointment, if applicable. Proposed Discharge Date: 08/26/18
--- NOTE | 2018-08-26 12:37 | PCM.DC.SUM ---
Discharge Date and Diagnosis Date of Admission: 08/24/18 Date of Discharge: 08/26/18 - Primary Discharge Diagnosis Active and Suspected Problems (This Medical Record has been edited. Action required.) Ileus (Acute) Small bowel obstruction (Suspected) - ruled out - Secondary Discharge Diagnosis Chronic Problems (This Medical Record has been edited. Action required.) Depression (Chronic) Migraine (Chronic) hx of repair of a ventral hernia [place] [address] Duenas Hepatic steatosis Hospital Course and Treatment Imaging Results: 08/26/18 04:50 Abd Inc Decub and/or Erect [RAD] Urgent Clinical Impression(s) from Imaging Studies Abdomen X-Ray 08/25/18 05:00 IMPRESSION: Moderate amount of fecal material is seen in the colon. Electronically Signed: Chau Galindo, at 13:19 EDT , Service support , Abdomen CT 08/25/18 16:22 IMPRESSION: 1. No acute findings. No recurrent hernia. 2. Hepatic steatosis. 3. Stable 1.5 cm left renal hypodensity. Electronically Signed: Haley Galindo MD at 19:57 EDT Tel , Service support , Abdomen X-Ray 08/26/18 04:50 IMPRESSION: Non-obstructive bowel gas pattern. No acute findings. at 0434 Reported and signed by: Yamil Nelson MD Electronically Signed: Yamil Nelson, at 4:32 EDT Tel , Service support , Dr. Gopal [facility] general surgery Operations: herniorrhaphy, None Procedures: None Summary of Care Provided: The patient is a 38 year old F with a past medical history of ventral hernia repair with mesh in [address] Duenas. At that time she also had incidental cholecystectomy and appendectomy. She presented to the emergency department at [facility] on 08/24/2018 complaining of severe abdominal pain and nausea. She denied vomiting. She had not had a bowel movement in 2 days and was not sure about passing flatus. A CT scan of the abdomen done with IV contrast was reported as an abnormal bowel pattern involving the small bowel with distention and thickening possibly consistent with early small bowel obstruction. White blood cell count was 9.2 with an unremarkable differential. Hemoglobin and platelets were within normal limits. She was admitted to the hospital with a diagnosis of suspected small bowel obstruction and made n.p.o. Dr. Duenas was consulted to participate in management. He agreed with conservative management and recommended no NG tube unless the patient began vomiting. She was instructed to ambulate in the halls to encourage increased bowel function. A CT scan of the abdomen with oral contrast was repeated on 08/25/2018 because the patient stated she was passing minimal gas and still had significant abdominal pain. She had not had a bowel movement. CT scan revealed no bowel obstruction or inflammatory change. There was no recurrent hernia. There was diffuse fatty infiltration of the liver. There was a 1.5 cm low-attenuation lesion in the upper pole of the left kidney which was unchanged from a prior study. On the morning of 08/26/2018 she was started on clear liquids and this was advanced to full liquids later in the day. She did have a bowel movement on that day and the pain was much improved. She was discharged home with a diagnosis of ileus and instructed to stick to a full liquid diet for the next 24 to 48 hours and advance as tolerated. She will follow-up with Dr. Sosa in 5 to 7 days. Weight loss and a low-fat diet were advised. She was instructed to increase water and fiber consumption and if she has any constipation to start a stool softener such as Miralax or Metamucil. General: Alert, Oriented x3, Cooperative, No apparent distress, Well developed, Well nourished HEENT: Atraumatic Oral: Moist Mucosa Cardiovascular: Regular rate, Regular Rhythm, Normal S1, Normal S2 Abdomen: Soft, normal bowel Sounds, nontender, nondistended This note was generated with [employer] software. It may contain incorrect words, spelling, and punctuation that were not noted in checking the note before signing. - Physical Exam Vital Signs Temp Pulse Resp BP Pulse Ox 98.9 F 74 16 141/86 H 97 06/04/19 09:51 08/26/18 09:51 08/26/18 09:51 08/26/18 09:51 08/26/18 09:51 Oxygen Delivery Method Room Air Weight: 278 lb 0.046 oz Body Mass Index (BMI) 38.7 Intake and Output for Last 24 Hours 08/24/18 08/25/18 08/26/18 23:59 23:59 23:59 Intake Total 1250 / 1250 3024 / 3024 1091 / 1091 Output Total 500 / 500 Balance 1250 / 1250 3024 / 3024 591 / 591 Discharge Activity: Return to Normal Activity Return to work on:: 08/28/18 Call your doctor if you observe: Fever of 101 or Higher, - - abdominal pain, nausea/vomiting, inability to have a BM Home Medications: Medications to take at Discharge Ondansetron [Zofran Odt] 4 mg PO Q8H PRN PRN #10 tablet 06/02/18 Hydrochlorothiazide 12.5 mg PO DAILY 08/24/18 Lactobacillus Acidophilus [Probiotic] 1 each PO LUNCH 08/24/18 Lisinopril 20 mg PO DAILY 08/24/18 Primary Care Physician: Dennis Sosa MD [Primary Care Provider] - Please follow up with your Primary Care Physician in: 5-7 days Patient Instructions: Eating a High-Fiber Diet, Discharge Instructions: Eating a Full Liquid Diet Disposition: Home Minutes spent on discharge:: 30 Patient Condition:: Good Medical Necessity - Tobacco Use Smoking Status: Never smoker Tobacco Use: Non-smoker Meaningful Use Info Meaningful Use Diagnoses (Choose all that apply): None applicable Code Visit Inpatient E&M: 49721 Disch Hosp
== END 2018-08-26 13:30 | disposition home or self-care (01) | DRG 390 ==
PROVIDERS: Admitting Provider Internal Medicine; Family Provider Family Medicine; PCP Family Medicine; Visit Provider Internal Medicine
DX: K56.7 Ileus, unspecified (principal); I10 Essential (primary) hypertension; R73.03 Prediabetes; E66.9 Obesity, unspecified; Z68.38 Body mass index [BMI] 38.0-38.9, adult; Z79.899 Other long term (current) drug therapy; Z90.49 Acquired absence of other specified parts of digestive tract
CPT/HCPCS: 36415; 74019; 74176; 80048; 84443; 85025; J7120; A4216; J2405; J3490

== ENCOUNTER → 2018-10-29 20:00 | Outpatient (CLI) | payer OTHER, SELFPAY ==
[2018-08-24 08:25] VITALS: BMI 38.7
== END ==
PROVIDERS: Family Provider Family Medicine; PCP Family Medicine; Referring Provider Physician Assistant; Visit Provider Physician Assistant
DX: R06.83 Snoring (principal); R53.83 Other fatigue; I10 Essential (primary) hypertension
CPT/HCPCS: 95810

== ENCOUNTER → 2019-01-07 20:00 | Outpatient (CLI) | payer OTHER, SELFPAY ==
[2018-08-24 08:25] VITALS: BMI 38.7
== END ==
PROVIDERS: Family Provider Family Medicine; PCP Family Medicine; Referring Provider Physician Assistant; Visit Provider Physician Assistant
DX: G47.33 Obstructive sleep apnea (adult) (pediatric) (principal)
CPT/HCPCS: 95811

== ENCOUNTER 2019-02-21 10:48 | Emergency (ER) | payer OTHER, SELFPAY ==
[2018-08-24 08:25] VITALS: BMI 38.7
[2019-02-21 10:50] VITALS: BP 143/114; PULSE 108; RESP 17; TEMP 37.3; O2SAT 96; BMI 39.8
--- NOTE | 2019-02-21 11:06 | RAD_ITS ---
STUDY: X-RAY CHEST REASON FOR EXAM: Female, 38 years old. Cough and fever x3 weeks TECHNIQUE: AP and lateral views of the chest. COMPARISON: June 10, 2017 FINDINGS: The lungs are clear and expanded. There is no demonstrated pleural abnormality. Normal size heart. Normal mediastinum and zheng. Normal visualized pulmonary arteries. Normal visualized aortic arch and descending thoracic aorta. Normal visualized thoracic spine. Normal visualized ribs, clavicles, and shoulders. There is no demonstrated abnormality of the visualized soft tissue structures of the upper abdomen. RAD/Chest PA and Lateral IMPRESSION: Normal x-ray examination of the chest. Electronically Signed: Mj Issa DO at 11:34 EST Tel , Service support ,
--- NOTE | 2019-02-21 11:23 | ED.DCSUM_ITS ---
- ER Visit Summary Date of Service: 02/21/19 Chief Complaint: [Fever] History of Present Illness: The patient is a 38 F [presents to the emergency department complaint of 2-day history of fever. Patient states that she has been battling some upper respiratory symptoms and facial pressure and congestion for over a 4 days. Patient was started on Augmentin 4 days ago. Patient denies any dysuria currently. She tells me she does have history of pneumonia as well as pyelonephritis. Patient with history of hypertension and history of GERD. Patient does describe some chills. She denies any abdominal pain. Patient states that she did not feel like she could go to work feeling this way.] Physical Examination: [HEENT-PERRLA, EOMI. Cranial nerves II through XII grossly intact. TMs clear. Mucous membranes moist. No adenopathy. Pharynx nonerythematous. Uvula in the midline without exudates. No trismus on exam. Cardiovascular-regular rate and rhythm without murmur or ectopy Lungs-good aeration bilaterally. No rales or wheezes noted. No accessory muscle use or retractions. Abdomen-normoactive bowel sounds, soft, nontender, no rebound or rigidity, no peritoneal signs. Extremities-intact ?4, normal range of motion, normal pulses, atraumatic] Test Results: [Chest x-ray obtained showed nothing acute.] Urinalysis obtained was normal. Emergency Department Course and Treatment: [] Treatment Plan: [Patient advised to push fluids and use ibuprofen or Tylenol for discomfort. Patient to finish her Augmentin which she started 4 days ago. I suspect patient likely has a viral syndrome however.] Disposition: [Discharged home in stable condition] Impression: [Viral syndrome Generalized weakness] This note was generated with [employer] dictation software. It may contain incorrect words, spelling, and punctuation that were not noted in review of the chart prior to signing ED Disposition - Plan for ED Patient: Referrals: Dennis Sosa MD [Primary Care Provider] -
[2019-02-21 11:32] LABS: Bacteria 0 SEEN /hpf (None Seen); Mucous, Urine 0 SEEN /hpf (<or=2+); White Blood Cells 0 SEEN /hpf (0-5)
[2019-02-21 11:38] LABS: Color, Urine Yellow (Yellow); Glucose, Dipstick Normal (Normal); Ketone-Dipstick Negative (Negative); Leukocyte Esterase-Dipstick Negative /ul (Negative); Nitrite-Dipstick Negative (Negative); Occult Blood-Urine Negative /ul (Negative); Protein-Dipstick 15 mg/dl (Negative); Specific Gravity, Urine 1.025 (1.002-1.030); Urine Bilirubin Dipstick Negative (Negative); Urine Clarity Clear (Clear); Urine Urobilinogen Normal (Normal)
[2019-02-21 11:48] LABS: Red Blood Cells-Urine 0-5 SEEN /hpf (0-5); Squamous Epithelial Cells - UA 0-5 SEEN /hpf (5-10)
--- NOTE | 2019-02-21 11:59 | ED.DEP ---
ED Disposition - Plan for ED Patient: Instructions: VIRAL SYNDROME (Adult) Referrals: Dennis Sosa MD [Primary Care Provider] - 3-5 Days
== END 2019-02-21 12:03 | disposition home or self-care (01) ==
LOC: ED 11:33
PROVIDERS: Emergency Provider Emergency Medicine; Family Provider Family Medicine; PCP Family Medicine
DX: B34.9 Viral infection, unspecified (principal); R53.1 Weakness; R05 Cough; R11.0 Nausea; I10 Essential (primary) hypertension; K21.9 Gastro-esophageal reflux disease without esophagitis; Z79.899 Other long term (current) drug therapy; Z87.440 Personal history of urinary (tract) infections; Z87.01 Personal history of pneumonia (recurrent)
CPT/HCPCS: 71046; 81001; 99282

== ENCOUNTER → 2019-02-26 12:10 | Outpatient (CLI) | payer OTHER, SELFPAY ==
[2019-02-21 10:50] VITALS: BMI 39.8
[2019-02-26 12:29] LABS: International Normalized Ratio 1.1; Prothrombin Time (Protime)PT. 13.9 SECONDS (11.7-14.9)
[2019-02-26 13:57] LABS: D-Dimer Quantitative (DVT/PE) 0.29 FEU/ug/m (0.27-0.49)
== END ==
PROVIDERS: Family Provider Family Medicine; PCP Family Medicine; Referring Provider Nurse Practitioner Primary Care; Visit Provider Nurse Practitioner Primary Care
DX: R06.02 Shortness of breath (principal); R07.89 Other chest pain
CPT/HCPCS: 85379; 85610

== ENCOUNTER 2019-03-13 15:12 | Emergency (ER) | payer OTHER, SELFPAY ==
[2019-03-13 15:14] VITALS: BP 145/89; PULSE 103; RESP 18; TEMP 37.1; O2SAT 99; BMI 39.4
--- NOTE | 2019-03-13 15:32 | CT_ITS ---
STUDY: CT MAXILLOFACIAL SINUSES REASON FOR EXAM: Female, 38 years old. Severe right ear pain, sinus congestion. Hx hypertension. RADIATION DOSAGE (If Supplied By Facility): CTDIvol = ( 33.45 ) mGy, DLP = ( 533.84 ) mGycm TECHNIQUE: The patient was scanned in a multi detector CT scanner. High resolution axial imaging was performed without the administration of intravenous contrast material. Sagittal and coronal images were reconstructed. Individualized dose optimization techniques were used for this CT. COMPARISON: Prior CT head exam of June 02, 2018 FINDINGS: FRONTAL SINUSES: Mucosal thickening in the inferior recess of the left frontal sinus with occlusion. Mucosal thickening in the body and inferior recess of the right frontal sinus with occlusion. ETHMOIDAL SINUSES: Complete or part of costal opacification of all ethmoid sinuses. MAXILLARY SINUSES: Moderate to advanced mucosal thickening in the bilateral maxillary sinuses with retained fluid bilaterally and occlusion of the maxillary ostia and infundibula. Occlusion of the middle meatus on the right. Partial occlusion on the left. SPHENOIDAL SINUSES: Circumferential moderate to severe mucosal thickening in the sphenoid sinuses. Grossly normal temporal bones bilaterally. Normal bilateral middle turbinates. Normal bilateral inferior turbinates. Minimal left nasal septal deviation. There is patency of the bilateral nasal airways. The visualized osseous structures are normal. The visualized bilateral orbital contents are normal. CT/Sinus/Facial Bone IMPRESSION: Extensive mucosal disease throughout the paranasal sinuses in the pattern as described above. None of these findings were present at the time of the prior head CT exam of June 02, 2018. Electronically Signed: Azucena Brasher MD at 16:14 EST , Service support ,
[2019-03-13] MEDS: HYDROcodone Bitartrate/Apap 5/325 Tablet PO (15:40)
--- NOTE | 2019-03-13 15:51 | ED.DCSUM_ITS ---
- ER Visit Summary Date of Service: 03/13/19 Chief Complaint: [Right ear pain] History of Present Illness: The patient is a 38 F [presents to the emergency department with complaint of severe right ear pain that started 2 days ago. Patient states that she was seen by myself in the emergency department about 3 weeks ago for fever as well as cough and sinus congestion. At that time patient had been on Augmentin for 4 days. At that time she had a chest x-ray that was unremarkable and a urinalysis that was unremarkable. Patient states that the pain in her right ear is so severe that it causes her dizziness at times. States that she was seeing her primary care physician today but was having too much pain to wait and came to the ER instead. Denies recent fever. She does complain of sinus she denies any recent falls or head injuries. Patient with history of hypertension. Also gives history of a fall earlier in the summer where she hit the right side of her head and injured it and was seen in the emergency department and had CTAs of the head and neck that apparently were unremarkable.] Physical Examination: [HEENT-PERRLA, EOMI. Cranial nerves II through XII grossly intact. TMs clear. Mucous membranes moist. No adenopathy. Right ear- there is no edema of the ear canal. There is no drainage from the ear canal. No pain with traction on the pinna. Patient has minimal tenderness over the right mastoid and there is no evidence of soft tissue swelling or erythema noted. Patient does have some tenderness to palpation of the right side of the face just inferior to the right maxillary sinus. Dentition is nontender. No dental abscesses noted. Cardiovascular-regular rate and rhythm without murmur or ectopy Lungs-clear to auscultation, chest wall stable without crepitus or subcu emphysema Abdomen-normoactive bowel sounds, soft, nontender, no rebound or rigidity, no peritoneal signs. Extremities-intact ?4, normal range of motion, normal pulses, atraumatic] Test Results: [CT scan of the sinuses obtained read by radiology as extensive mucosal disease throughout the paranasal sinuses in the pattern described above in the body of the CT.] Emergency Department Course and Treatment: [Patient was given 1 Daykin for pain which she states did not seem to improve her pain very much. Case was discussed with ear nose and throat physician Dr. Dutta who would be happy to see patient in follow-up and he recommended doxycycline and steroids such as a Medrol Dosepak.] Treatment Plan: [Patient will be started on doxycycline and given a Medrol Dosepak. Patient also will be given a few Percocet for pain.] Disposition: [Discharged home in stable condition.] Impression: [ACute sinusitis Right otalgia] This note was generated with [employer] dictation software. It may contain incorrect words, spelling, and punctuation that were not noted in review of the chart prior to signing ED Disposition - Plan for ED Patient: Referrals: Dennis Sosa MD [Primary Care Provider] -
--- NOTE | 2019-03-13 16:40 | ED.DEP ---
ED Disposition - Plan for ED Patient: Instructions: EARACHE w/o Infection (Adult), SINUSITIS, Abx Tx Prescriptions: Doxycycline 100 mg PO BID #20 cap Transmission Status: Pending to [facility] [address] MethylPREDNISolone DosePak [Medrol DosePak] 4 mg PO UD #1 box Transmission Status: Pending to [facility] Oxycodone HCl/Acetaminophen [Percocet 5/325] 1 tab PO Q6H PRN PRN 3 Days #12 tab PRN Reason: Pain Prescription Printed Referrals: Dennis Sosa MD [Primary Care Provider] - John Jane MD [STAFF PHYSICIAN] - 5-7 Days
[2019-03-13 16:56] VITALS: BP 152/99; PULSE 75; RESP 16
[2019-03-13] MEDS: Doxycycline 100 MG CAPSULE PO (16:58)
== END 2019-03-13 17:45 | disposition home or self-care (01) ==
LOC: ED 15:35
PROVIDERS: Emergency Provider Emergency Medicine; Family Provider Family Medicine; PCP Family Medicine
DX: J01.80 Other acute sinusitis (principal); H92.01 Otalgia, right ear; I10 Essential (primary) hypertension; Z79.899 Other long term (current) drug therapy
CPT/HCPCS: 70486; 99283

== ENCOUNTER 2019-10-06 18:58 | Emergency (ER) | payer OTHER, SELFPAY ==
[2019-10-06 18:59] VITALS: BP 145/110; PULSE 98; RESP 15; TEMP 36.9; O2SAT 98; BMI 39.9
[2019-10-06 19:02] VITALS: BP 145/110; PULSE 98; RESP 15; TEMP 36.9; O2SAT 98
--- NOTE | 2019-10-06 19:21 | CT_ITS ---
STUDY: CT ABDOMEN AND PELVIS WITH CONTRAST REASON FOR EXAM: Female, 39 years old. ABDOMEN PAIN,DIARRHEA X 1MONTH -- HX:HTN,PCOS -- SURGERY:,APPENDECTOMY,CHOLECYSTECTOMY -- TUBAL,VENTRAL HERNIA REPAIR RADIATION DOSAGE (If Supplied By Facility): CTDIvol = ( 20.36 ) mGy, DLP = ( 1368.99 ) mGycm TECHNIQUE: Transaxial images were obtained from the dome of the diaphragm to the symphysis pubis with oral contrast. Oral and amp; IV Gastrografin and amp; 100mL Isovue-370 was administered. Sagittal and coronal images were reconstructed. Individualized dose optimization techniques were used for this CT. COMPARISON: CT of abdomen and pelvis dated August 25, 2018 FINDINGS: The visualized lung bases are unremarkable There is decreased attenuation of the liver consistent with steatosis. The gallbladder is absent. Normal spleen. Normal pancreas. Normal bilateral adrenal glands. Normal right kidney. Reidentification of several small cysts of the left kidney which are benign and require no follow-up evaluation. Normal visualized stomach. Normal small intestine. Normal colon. There are surgical clips in the region of the appendix consistent with a prior appendectomy. Stable intra-abdominal mesh material across the umbilicus. No free air or free fluid. No evidence of bowel obstruction. Normal abdominal aorta. Normal inferior vena cava. Normal retroperitoneum. Normal urinary bladder. Grossly unremarkable uterus and adnexal regions. Bilateral adnexal occlusive clips noted. Normal abdominal wall. There are diffuse degenerative changes of the visualized lumbar spine. CT/Abdomen/Pelvis WITH Contrast IMPRESSION: No demonstrated acute process. Electronically Signed: Julio César Shrestha MD at 22:03 EDT , Service support ,
[2019-10-06 19:39] LABS: Absolute Lymphocyte Count 1.91 X10^3/uL (0.83-4.51); Absolute Neutrophil Count 6.6 X10^3/uL (2.0-7.7); Basophil# 0.03 X10^3/uL; Basophil% 0.3 % (0-1); Eosinophil# 0.08 X10^3/uL; Eosinophils% 0.9 % (0-5); Hematocrit 45.6 % (37-47); Lymphocyte # 1.91 X10^3/ul (4.0); Lymphocyte % 20.8 % (19-41); Mean Corp Hgb Conc 32.9 g/dL (32-36); Mean Corpuscular Hgb 29.7 pg (27.0-32.0); Mean Corpuscular Volume 90.3 fL (81-99); Mean Platelet Vol. 8.2 fl (6.2-12.0); Monocyte# 0.57 X10^3/uL; Monocyte% 6.2 % (0-10); NRBC Flagged by Analyzer 0 % (0-5); Neutrophil # 6.56 X10^3/uL (2.7-7.7); Neutrophil % 71.5 % (47-70); Platelet Count 292 K/mm3 (150-450); RBC Distribution Width CV 12.7 % (11.6-14.6); RBC Distribution Width SD 41.6 fl (35.1-43.9); Red Blood Count 5.05 M/mm3 (4.2-5.4); White Blood Count 9.2 K/mm3 (4.4-11.0)
[2019-10-06] MEDS: 0.9% Normal Saline 1,000 ML 1000 ML IV (19:39)
[2019-10-06] MEDS: Morphine 4 MG/ML Syringe IV (19:39)
[2019-10-06] MEDS: Ondansetron 4 MG/2 ML Vial IV (19:39)
[2019-10-06 19:51] LABS: Bacteria 0 SEEN /hpf (None Seen); Mucous, Urine 0 SEEN /hpf (<or=2+)
[2019-10-06 20:10] LABS: Color, Urine Yellow (Yellow); Glucose, Dipstick Normal (Normal); Ketone-Dipstick 5 mg/dl (Negative); Leukocyte Esterase-Dipstick Negative /ul (Negative); Nitrite-Dipstick Negative (Negative); Occult Blood-Urine 150 /ul (Negative); Protein-Dipstick 15 mg/dl (Negative); Specific Gravity, Urine 1.025 (1.002-1.030); Urine Clarity Clear (Clear); Urine Urobilinogen Normal (Normal)
[2019-10-06 20:11] LABS: Urine Bilirubin Dipstick 1 mg/dL (Negative)
[2019-10-06 20:12] LABS: Internal QC Validated? YES +Cl - CLEAR BKGD; Pregnancy, Serum, hCG Quali. NEGATIVE Negative
[2019-10-06 20:16] LABS: Red Blood Cells-Urine 0-5 SEEN /hpf (0-5); Squamous Epithelial Cells - UA 0-5 SEEN /hpf (5-10); White Blood Cells 0-5 SEEN /hpf (0-5)
[2019-10-06 20:18] LABS: AST(SGOT) 46 U/L (15-37); Alanine Aminotransfer ALT/SGPT 84 U/L (13-56); Albumin, Serum 3.8 g/dL (3.2-5.0); Alkaline Phosphatase 88 U/L (45-117); Anion Gap 6 (5-15); BUN 9 mg/dL (7-18); BUN/Creat Ratio 9.3 RATIO (10-20); Calcium,Total 8.5 mg/dL (8.5-10.1); Chloride 107 mmol/L (98-107); Creatinine, Serum 0.97 mg/dL (0.55-1.02); EST Glomerular Filtration Rate 68 mL/min (>60); Est Glom Filt Rate - Afr Amer 82 mL/min (>60); Estimated Creatinine Clearance 87.03 ml/min; Globulin 3.9 g/dL (2.2-4.2); Glucose 92 mg/dL (74-106); Potassium 3.3 mmol/L (3.5-5.1); Protein, Total 7.7 g/dL (6.4-8.2); Sodium Level 140 mmol/L (136-145)
--- NOTE | 2019-10-06 20:37 | EKG12_ITS ---
Test Reason : CP Blood Pressure : / mmHG Vent. Rate : 077 BPM Atrial Rate : 077 BPM P-R Int : 160 ms QRS Dur : 094 ms QT Int : 408 ms P-R-T Axes : 030 -09 020 degrees QTc Int : 461 ms Normal sinus rhythm Low voltage QRS (Limb Leads) Confirmed by SRINIVAS MUSE, CATALINO ([id number]), editorial director ABNER AYALA ([id number]) on 10/08/2019 9:42:19 AM Referred By: Confirmed By:CATALINO ESPINO MD
[2019-10-06 21:02] VITALS: BP 129/58; PULSE 111; RESP 22; RESP 28; TEMP 36.6; O2SAT 95; O2SAT 98
[2019-10-06 21:08] VITALS: BP 129/94; PULSE 78
[2019-10-06] MEDS: Nitroglycerin SL (ED/IMG/CATH) 0.4 MG TABLET SUBLINGUAL (21:08)
[2019-10-06] MEDS: Mag Hydrox/Al Hydrox/Simeth 30 ML UDC PO (21:08)
--- NOTE | 2019-10-06 22:27 | ED.DCSUM_ITS ---
- ER Visit Summary Date of Service: 10/06/19 Chief Complaint: Abdominal pain History of Present Illness: The patient is a 39 F who presents with abdominal pain that began today. Patient states it has gradually gotten worse throughout the day. Patient states the pain is worse with deep breathing and with lifting. Patient describes her pain is sharp. Patient states her pain is generalized but worse on the right side. Patient states nothing makes her pain better. Patient admits to nausea but denies any vomiting. Patient admits to some recent diarrhea. Patient states her pain radiates into her back. Patient denies any dysuria or hematuria. Physical Examination: Vital signs are stable. Patient is afebrile. Patient is in no acute distress. Oral mucosa is pink and moist. Neck is supple. Trachea is midline. There is no JVD. Heart was regular rate and rhythm. Lungs are clear and equal bilaterally. Abdomen is soft. Bowel sounds are normal. There is right upper quadrant right mid abdominal tenderness. There is no rebound or guarding noted. Extremities are intact. There is no calf tenderness or edema. Cranial nerves II through XII are intact. There are no focal motor or sensory deficits noted. Test Results: EKG showed normal sinus rhythm with a rate of 77. There are no acute ST or T wave changes. CT scan of the abdomen pelvis was obtained. There is no acute intra-abdominal process. CBC was within normal limits. Comprehensi ve metabolic profile was essentially within normal limits. Urinalysis does not show any evidence of urinary tract infection. Serum hCG was negative. Emergency Department Course and Treatment: Patient was given IV fluids. Patient was given morphine and Zofran initially. Patient started having chest pain while here in the emergency department. Patient was given sublingual nitroglycerin and a GI cocktail. Patient states this helped her pain. Patient was advised of her results. Patient was instructed to follow-up with her primary care physician in 3 to 5 days for further evaluation. Patient understood and was agreeable with the plan. All questions were answered. Disposition: Discharge home Impression: Abdominal pain This note was generated with [employer] dictation software. It may contain incorrect words, spelling, and punctuation that were not noted in review of the chart prior to signing ED Disposition - Plan for ED Patient: Disposition: Home or Assisted Living Diagnosis: Abdominal pain Instructions: ED Abdominal Pain Unkn Cause Fem Referrals: Dennis Sosa MD [Primary Care Provider] - 3-5 Days
[2019-10-06 23:00] VITALS: BP 154/100; PULSE 89; RESP 16; O2SAT 98
== END 2019-10-06 23:02 | disposition home or self-care (01) ==
PROVIDERS: Emergency Provider Emergency Medicine; PCP Family Medicine
DX: R10.84 Generalized abdominal pain (principal); R11.0 Nausea; R07.9 Chest pain, unspecified; I10 Essential (primary) hypertension; F41.9 Anxiety disorder, unspecified; E66.9 Obesity, unspecified; Z90.49 Acquired absence of other specified parts of digestive tract
CPT/HCPCS: 74177; 80053; 81001; 84703; 85025; 93005; 96361; 96374; 96375; 99284; J7030; Q9967; J2405

== ENCOUNTER 2021-05-05 12:21 | Day surgery (SDC) | payer BC, MEDICAID, SELFPAY ==
[2021-05-05] VITALS (8 sets, daily range): BP systolic 119–153; BP diastolic 66–102; PULSE 74–93; RESP 16; TEMP 36.1–37.3; O2SAT 92–100; BMI 41.8
[2021-05-05] MEDS: Acetaminophen 500 MG Tablet 1000 MG PO (13:00)
[2021-05-05 13:03] LABS: Internal QC Validated? YES +Cl - CLEAR BKGD; Pregnancy, Urine Negative Negative
[2021-05-05] MEDS: Ketorolac 30 MG/ML Syringe IV (13:15)
[2021-05-05] MEDS: Lactated Ringers 1,000 ML 15 ML IV (13:16)
[2021-05-05 13:22] LABS: Hemoglobin 15.2 g/dL (12.0-15.0); Mean Corp Hgb Conc 33.8 g/dL (32-36); Mean Corpuscular Hgb 30.6 pg (27.0-32.0); Mean Corpuscular Volume 90.7 fL (81-99); Mean Platelet Vol. 8.4 fl (6.2-12.0); Platelet Count 267 K/mm3 (150-450); RBC Distribution Width CV 12.7 % (11.6-14.6); RBC Distribution Width SD 42.2 fl (35.1-43.9); Red Blood Count 4.96 M/mm3 (4.2-5.4); White Blood Count 8.4 K/mm3 (4.4-11.0)
[2021-05-05 13:39] LABS: Anion Gap 7 (5-15); BUN 13 mg/dL (7-18); BUN/Creat Ratio 18.5 RATIO (10-20); Calcium,Total 8.8 mg/dL (8.5-10.1); Chloride 108 mmol/L (98-107); EST Glomerular Filtration Rate 98 mL/min (>60); Est Glom Filt Rate - Afr Amer 118 mL/min (>60); Estimated Creatinine Clearance 118.21 ml/min; Glucose 100 mg/dL (74-106); Potassium 3.7 mmol/L (3.5-5.1); Sodium Level 137 mmol/L (136-145)
--- NOTE | 2021-05-05 13:40 | HP.PCM_ITS ---
History and Physical Date of Admission: 05/05/21 [id number] who is complete her childbearing presents today complaining of right lower quadrant pain. She states is been going on for several days but became acutely worse today. It is limiting her ability to stand up straight or move in a normal fashion. She is having some nausea because of it. She was evaluated in the office and found to have a large right ovarian cyst. Blood flow was noted. She denies any fevers or chills. Past medical history is significant for migraines, ventral hernia with incarceration and repair in the past, urinary tract infections, depression, and small bowel obstruction Physical exam: General: Awake, alert, appears uncomfortable especially with movement. Skin is warm dry and intact. Lungs clear to all station bilaterally Heart S1-S2 regular rate rhythm Abdomen is soft, large pannus, no rebound but some voluntary guarding in the lower abdomen Bimanual exam was performed by Dr. Watkins in the office and she did have acute right lower quadrant tenderness and some cervical motion tenderness. No purulent discharge from the os. Pelvic ultrasound was performed which revealed large approximately 8 cm right ovarian cyst. test is negative Assessment & Plan Assessment/Plan (1) Abdominal pain, acute, right lower quadrant: (2) Right ovarian cyst: PLAN: With pain and size of cyst, am suspicious of torsion or partial torsion. Discussed with the patient we would make an effort to save the ovary remove the cyst. However depending on the findings a right salpingo- oophorectomy may be indicated. Patient is comfortable with this as she is complete her childbearing. Her questions were answered to her satisfaction she desires to proceed.
--- NOTE | 2021-05-05 13:47 | PCM.DC ---
Discharge Instructions Diet Discharge Diet: No restrictions Activity May resume sexual activity in: 1 week Dressing / Incision Call your doctor if your incision/area has: Sudden Increased Bleeding and Foul Smelling Discharge Call your doctor if you observe: Fever of 101 or Higher Cleanse incision/area with: Soap & Water (Your incisions have skin glue and it can get wet. Leave on until it falls off) Follow Up Care Please Follow Up With: Veronica Leos MD When: In my office or virtual visit in 1-2 weeks or as needed Test Results: Test results from this visit will be discussed in further detail at your follow-up appointment, if applicable. Discharge Plan Admission Primary Reason for Your Visit: Right ovarian cyst removal Attending Provider: Veronica Leos Primary Care Provider: Dennis Sosa Instructions Additional Instructions / Restrictions: Take 1000 mg of tylenol 3-4 times a day for pain. Take ibuprofen with food 200-400 mg every 8 hrs as needed for pain Discharge Orders/Prescriptions Prescriptions: New oxycodone 5 MG tablet 5 mg PO Q6H PRN PRN (Reason: severe pain) 7 Days Qty: 20 RF: 0 Continued lisinopril 20 MG tablet 20 mg PO DAILY RF: 0 hydrochlorothiazide 12.5 MG capsule 12.5 mg PO DAILY RF: 0 Probiotic 1 EACH capsule 1 ea PO LUNCH RF: 0 omeprazole 40 MG capsule,delayed release(DR/EC) 40 mg PO DAILY RF: 0 metformin 500 mg Tablet 500 mg PO BID RF: 0 Referrals / Follow Up: Dennis Sosa MD [Primary Care Provider] - Disposition Disposition (needs filled in before D/C Order can be placed): Home, Self Care
--- NOTE | 2021-05-05 13:50 | OP.PCM_ITS ---
Problems Associated Problem List Diagnoses (1) Postoperative pain: (2) Right ovarian cyst: Report of Operation Date of Procedure: 05/05/21 Pre-Operative Diagnosis: RLQ pain- acute, right ovarian cyst Post-Operative Diagnosis: same Surgery/Procedure Performed:: Laparoscopic right ovarian cystectomy and salpingectomy, lysis of omental adhesions away from anterior abdominal wall. Description of Surgical Findings:: Normal uterus, left tube and ovary. Some adhesions of the omentum to the left mid abdomen over top of the previously implanted mesh. Right ovary with large edematous ovarian cyst adhered to the fallopian tube. Previous Filshie clips noted. Otherwise unremarkable peritoneal cavity. Surgeon: Veronica Leos chucker: Norma Russell Type of Anesthesia: General Anesthesiologist: Abiodun Piper Special Medications: none Specimen's removed: Right fallopian tube and ovarian cyst Drains: none Estimated Blood Loss (mL): 10 Fluids Replaced: 500 Description of Procedure: The patient was taken to the operating room where she was prepped and draped in the dorsolithotomy position. A weighted speculum was placed in the vagina and the anterior lip of the cervix was grasped with a tenaculum. The ZUMI uterine manipulator was placed and the remainder of the instruments were removed from the vagina. Attention was turned to the abdomen. All port sites were infiltrated with 0.5% Marcaine before skin incisions were made. A 5 mm left upper quadrant incision was made. The anterior abdominal wall was tented up with 2 towel clamps while a 5 mm blade less trocar and sleeve were directly inserted using the Visiport. Intraperitoneal placement was confirmed with the laparoscope. The pneumoperiton eum was created and the underlying abdominal contents were intact. The patient was placed in Trendelenburg. Right and left lower quadrant ports were placed under direct visualization lateral to the inferior epigastric vessels. The bowel was swept away and the above findings were noted. The LigaSure device was used to clamp, seal and transect the ovarian cyst away from the right ovarian tissue. The antimesenteric portions of the tube were also clamped, sealed and transected. The insertion of the tube at the cornual insertion was clamped, sealed and transected with the LigaSure device. The pedicles were again examined and found to be hemostatic. A 10 mm suprapubic incision was made with a scalpel and carried through to underlying layer fascia with scalpel. The peritoneum was entered sharply with the trocar and the incision was stretched with a Kayla clamp. The Endo Catch bag was placed in and the cyst was too large to place in the bag. Some of the clear fluid was aspirated the cyst and then the cyst and tube were placed in the Endo Catch bag along with the right Filshie clip. The bag was brought up to the incision where the cyst was then fully ruptured and the clear fluid removed. The tube and ovarian cyst were then brought out in the bag through the suprapubic incision. The suprapubic incision was closed with 2-0 Vicryl sutures in an interrupted fashion. The lateral ports were removed under direct visualization and no active bleeding was noted. The pneumoperitoneum was released. The skin incisions were closed with Monocryl suture in a subcuticular fashion an d skin glue by the [employer]. The vaginal instruments were removed and the vaginal sweep was completed by me. The procedure was performed by me with assistance other than as dictated above. All sponge and needle counts were correct and the patient was taken to the recovery room in stable condition. The [employer] provided camera guidance and tissue manipulation during the surgery. Grafts/Implants Used: none Procedure Start Time: 14:06 Procedure Stop Time: 14:53 Complications none Admit VTE Documentation VTE Present on Admission: No VTE Mechan Device Prophylaxis: SCD's VTE Pharm Prophylaxis ordered?: No Reason prophylaxis not ordered:: Procedure Not Indicated
[2021-05-05] MEDS: Bupivacaine Mpf 0.5% 30 ML VIAL (14:42)
[2021-05-05] MEDS: oxyCODONE 5 MG Tablet PO (16:31)
[2021-05-05 17:58] LABS: Absolute Lymphocyte Count 2.03 X10^3/uL (0.83-4.51); Absolute Neutrophil Count 5.4 X10^3/uL (2.0-7.7); Basophil# 0.05 X10^3/uL; Basophil% 0.6 % (0-1); Eosinophil# 0.16 X10^3/uL; Eosinophils% 1.9 % (0-5); Lymphocyte # 2.03 X10^3/ul (0.83-4.51); Lymphocyte % 24.7 % (19-41); Monocyte# 0.58 X10^3/uL; Monocyte% 7.1 % (0-10); NRBC Flagged by Analyzer 0 % (0-5); Neutrophil # 5.37 X10^3/uL (2.7-7.7); Neutrophil % 65.3 % (47-70)
--- NOTE | 2021-05-07 | OV_PTH ---
PATIENT: SOPHIE SNOWDEN LOC: [facility] [place] U#:[id number] AGE/SX: 41/F ROOM: RE05/05/[address]: Dr. Veronica Leos MD : 1980 BED: DIS: 05/05/2021 SPEC #: [id number] RECD: 05/08/21 07:37 STATUS: DEACON LUCIANO #: [id number] SVEN: 05/07/21 00:[address]: Veronica Leos DEPT: SURGICAL PATHOLOGY RECD BY: Hao Otero ENTERED: 05/08/21 11:26 SP TYPE: OVARY OTHR DR: Dr. Dennis Sosa MD Tissues: Right ovary Procedures: Surgery Specimen Level IV HEADER OPERATION: Diagnostic laparoscopy, right ovarian cyst removal PRE-OP DIAGNOSIS: Abdominal pain, acute RLQ, right ovarian cyst TISSUE SUBMITTED: Right ovarian cyst and right fallopian tube MICROSCOPIC DIAGNOSIS Right ovarian cyst and right fallopian tube, salpingectomy and cystectomy: Right fallopian tube - no pathologic diagnosis. Right ovarian cyst ? consistent with papillary serous cystadenoma. SJ:rg 05/09/2021 COMMENT Case has been reviewed in consultation with Dr. Mills who concurs with the above diagnosis. IDC:AM MICROSCOPIC DESCRIPTION Slides are reviewed. GROSS DESCRIPTION Received in fixative is one container labeled with the patient's name and designated right ovarian cyst and right fallopian tube. The specimen consists of a fallopian tube with adjacent ovary. The fallopian tube measures 7 cm in length and 0.5 cm in diameter. The fimbrial end is identified. The fallopian tube appears to be focally adherent to the surface of the ovary. The proximal end of the fallopian tube shows a Filshie clip which appears intact. Sections reveal unremarkable cut surfaces. The collapsed cystic ovary measures 6 x 5 x 1 cm. The outer surface is smooth. The entire ovary is replaced by a unilocular cyst. The cyst wall measures 0.1 cm in thickness and is smooth. No papillations are identified. Risk Management Manager sections are submitted in four cassettes as follows: 1 ? fallopian tube, 2-4 ? cystic ovary. / GARCIA:graciela 05/08/2021 TC:1 CPT: 18849
== END 2021-05-05 23:59 | disposition home or self-care (01) ==
LOC: SDC 12:31 → AC 12:40
PROVIDERS: PCP Family Medicine; Referring Provider Obstetrics & Gynecology; Visit Provider Obstetrics & Gynecology
PROC: (CPT 49320; principal; 2021-05-05 12:15)
DX: D27.0 Benign neoplasm of right ovary (principal); K66.0 Peritoneal adhesions (postprocedural) (postinfection); G89.18 Other acute postprocedural pain; E28.2 Polycystic ovarian syndrome; I10 Essential (primary) hypertension; F32.A Depression, unspecified; F41.9 Anxiety disorder, unspecified; Z79.899 Other long term (current) drug therapy
CPT/HCPCS: 58662; 58661; 00840; 85027; 80048; 81025; 85025; 87426; 88305; J7120; J2405

== ENCOUNTER 2021-05-21 09:55 | Emergency (ER) | payer BC, MEDICAID, SELFPAY ==
[2021-05-21 09:56] VITALS: BP 154/110; PULSE 105; RESP 20; TEMP 36.8; O2SAT 100; BMI 41.8
--- NOTE | 2021-05-21 10:11 | ED.VIS.FEGU ---
HPI HPI - Female History of Present Illness Chief Complaint: Vag Bleeding Informant: patient Pain Pain: Positive for Pelvic Pain Onset: Days Context: Gradual Onset Timing: Continuous Quality: Positive for Cramping Current Severity: Mild Maximum Severity: Mild Worsened by: Movement and [place] Bleeding Issue: Positive for Vaginal bleeding and Passing clots Onset: Days Context: Gradual Onset Timing: Continuous Current Severity: Heavy Maximum Severity: Heavy Associated Symptoms Associated Symptoms: Negative for Dysuria, Frequency, Urgency, Hematuria and Missed Period Test: Positive Sexually: Positive for Active P: 1 Ab: 0 Narrative Narrative: 41-year-old female Ab0. History of hypertension and polycystic ovarian syndrome. She has had 1 prior . Patient states about 2 weeks ago she had surgery by Dr. Veronica Leos for an ovarian cyst. It was done laparoscopically the patient was doing well. She had intercourse on Saturday and since then has had bleeding that she states is gotten worse. Said she went through 3 overnight tampons last night. She is passing clots. She denies any dysuria or fever. She denies feeling lightheaded. She is not on any blood thinners. Prior similar symptoms: No Recent Illness/Hospitalization: Yes PFSH [facility] Medical History Anxiety Hernia HTN (hypertension) Hx LEEP (loop electrosurgical excision procedure), cervix, PCOS (polycystic ovarian syndrome) Home Medications Probiotic 1 ea PO LUNCH 08/24/18 [History Last Taken Unknown] hydrochlorothiazide 12.5 mg PO DAILY 08/24/18 [History Last Taken Unknown] omeprazole 40 mg PO DAILY 03/13/19 [History Last Taken Unknown] metformin 500 mg PO BID 05/05/21 [History Last Taken Unknown] oxycodone 5 mg PO Q6H PRN PRN 7 Days #20 tablet 05/05/21 [Rx Last Taken Unknown] losartan 50 mg PO DAILY 05/21/21 [History Last Taken Unknown] Allergy/AdvReac Type Severity Reaction Status Date / Time miconazole [From Monistat 7] Allergy Rash Verified 05/21/21 10:01 adhesive tape AdvReac Rash Verified 05/21/21 10:01 metronidazole [From Flagyl] AdvReac Vomiting Verified 05/21/21 10:01 naproxen AdvReac Upset Verified 05/21/21 10:01 Stomach NSAIDS (Non-Steroidal AdvReac Upset Verified 05/21/21 10:01 Anti-Inflamma Stomach Surgical History History of Social History Smoking Status: Never smoker ROS ROS ED ROS Narrative Denies recent illness. Review of Systems ROS Unobtainable: Denies due to encephalopathy Constitutional Constitutional ED: Denies fever(s) Eyes Eyes: Denies change in vision ENT ENT ED: Denies ear pain Cardiovascular Cardiovascular: Denies chest pain Respiratory/Chest Respiratory/Chest: Denies dyspnea Gastrointestinal Gastrointestinal: Reports other Details: Pelvic pain ; Denies abdominal pain Genitourinary Genitourinary ED: Denies dysuria Musculoskeletal Musculoskeletal: Denies myalgias Integumentary Denies rash Neurologic Neurologic: Denies headache(s) Psychiatric Psychiatric: Denies depression Endocrine Endocrinology: Denies polyuria Hematologic/Lymphatic Hematologic/Lymphatic: Denies easy bruising Allergic/Immunologic Allergic/Immunologic ED: Denies urticaria EXAM Physical Exam Narrative Exam Narrative: 1-year-old female no acute distress vital signs stable blood pressure 154/110. Heart rate 105. HEENT exam unremarkable. Lungs are clear. Heart regular rhythm rate about 100 no murmur. Abdomen soft nondistended normal bowel sounds no peritoneal signs. Suprapubic tenderness. Moving all 4 extremities. No edema. Const Vital Signs: 05/21/21 09:56 Temperature 98.3 F Temperature Source Temporal Pulse Rate 105 H Respiratory Rate 20 H Blood Pressure 154/110 H Blood Pressure Mean 124 Pulse Ox 100 Oxygen Delivery Method Room Air Positive well nourished, well developed and obese; Negative for cachectic, contractures or unkempt General Appearance ED: well developed and NAD; Negative for unkempt, cachectic, contractures or pallor Nutritional Appearance: obese; Negative for cachectic HEENT Reports moist mucous membranes Negative for trauma or tenderness Eyes PERRL and EOMs intact bilaterally General Eye ED: Negative for pale conjunctiva or scleral icterus Neck no lymphadenopathy, supple and no JVD Thyroid: Negative for tender Chest Wall inspection of chest normal and palpation of chest normal Resp normal respiratory effort and clear to auscultation bilaterally Effort and Inspection: Negative for pain with movement Auscultation: Negative for rales or rhonchi Cardio regular rhythm, S1 normal heart sound, no murmurs and no JVD; Negative for regular rate Rate: tachycardic GI normal to inspection, nondistended, normoactive bowel sounds, soft to palpation, non-distended and no masses; Negative for non-tender Auscultation: normoactive bowel sounds; Negative for hypoactive bowel sounds Palpation: tender; Negative for guarding or rigid Extremity normal to inspection and full ROM General Extremety ED: Negative for edema or tenderness General Extremity: Negative for edema Neuro oriented x3 Sensorium / Orientation: alert, oriented to person, oriented to place and oriented to time Psych mental status grossly normal Appearance: Negative for unkempt Attitude: No agitated Mood & Affect: Negative for tearful Skin no rashes or lesions noted and no wounds General Skin Exam: Negative for jaundice or pallor MDM MDM MDM Narrative Medical decision making narrative: 41-year-old female 2 weeks ago had ovarian cyst surgery. On Saturday had intercourse and since that time has had vaginal bleeding. Also complaining of pelvic discomfort. Labs and pelvic exam will be performed and I will speak to [facility] on-call. Pelvic exam done female nurse present in the room. Primarily dark older blood. Minimal clots. No large clots and no heavy bleeding. On bimanual exam she had mild left uterine tenderness. No discharge. Patient did tell me that for her last. They induced it with medications through her OB GYNs office. I suspect the bleeding is primarily heavier. This time due to shedding the lining. She said the last menstrual period 4 to 5 weeks ago was very mild. She will be discharged home to follow-up with her OB. I have them on page. Lab Data Attestation: I reviewed the patient's lab results. Lab results narrative: CBC normal white count of 5. H&H of 14.9 and 43.6. No significant change from prior. Serum test negative. Labs: Laboratory Results - last 24 hr 05/21/21 05/21/21 10:35 10:35 WBC 5.8 RBC 5.03 Hgb 14.9 Hct 43.6 MCV 86.7 MCH 29.6 MCHC 34.2 RDW Std Deviation 39.9 RDW Coeff of Yuki 12.8 Plt Count 283 MPV 8.2 Immature Gran % (Auto) 0.200 Neut % (Auto) 60.7 Lymph % (Auto) 28.6 [place] % (Auto) 7.2 Eos % (Auto) 2.6 Baso % (Auto) 0.7 Absolute Neuts (auto) 3.5 Absolute Lymphs (auto) 1.67 Nucleated RBC % 0 Serum , Qual NEGATIVE Discharge Plan Triage Chief Complaint: Vag Bleeding ED Provider: Rohit Vaz Dx/Rx/DC Orders Clinical Impression: Vaginal bleeding, Pelvic pain Instructions: Understanding Uterine Bleeding Prescriptions: No Action hydrochlorothiazide 12.5 MG capsule 12.5 mg PO DAILY RF: 0 Probiotic 1 EACH capsule 1 ea PO LUNCH RF: 0 omeprazole 40 MG capsule,delayed release(DR/EC) 40 mg PO DAILY RF: 0 metformin 500 mg Tablet 500 mg PO BID RF: 0 oxycodone 5 MG tablet 5 mg PO Q6H PRN PRN (Reason: severe pain) 7 Days Qty: 20 RF: 0 losartan 50 mg tablet 50 mg PO DAILY RF: 0 Primary Care Provider: Dennis Sosa Referrals: Dennis Sosa MD [Primary Care Provider] - Veronica Leos MD [STAFF PHYSICIAN] - As soon as possible Activity Restrictions/Additional Instructions: Your blood counts look good today. The bleeding is not severe. Most likely this is from having a light period last month and you are having a much heavier. This month she had uterine lining and more blood. Call and follow-up with your [facility] doctor tomorrow. They can reevaluate you this week. If you have continued heavy bleeding they can always check another blood count. If bleeding is a lot worse more than a tampon an hour or you feel lightheaded or dizzy or passing large clots and you can return to the emergency department otherwise you should be fine to follow-up with your primary care physician. Plenty of fluids to replace the blood loss. Disposition Disposition: Home, Self Care
[2021-05-21 10:44] LABS: Absolute Lymphocyte Count 1.67 X10^3/uL (0.83-4.51); Absolute Neutrophil Count 3.5 X10^3/uL (2.0-7.7); Basophil# 0.04 X10^3/uL; Basophil% 0.7 % (0-1); Eosinophil# 0.15 X10^3/uL; Eosinophils% 2.6 % (0-5); Hematocrit 43.6 % (37-47); Hemoglobin 14.9 g/dL (12.0-15.0); Lymphocyte # 1.67 X10^3/ul (0.83-4.51); Lymphocyte % 28.6 % (19-41); Mean Corp Hgb Conc 34.2 g/dL (32-36); Mean Corpuscular Hgb 29.6 pg (27.0-32.0); Mean Corpuscular Volume 86.7 fL (81-99); Mean Platelet Vol. 8.2 fl (6.2-12.0); Monocyte# 0.42 X10^3/uL; Monocyte% 7.2 % (0-10); NRBC Flagged by Analyzer 0 % (0-5); Neutrophil # 3.54 X10^3/uL (2.7-7.7); Neutrophil % 60.7 % (47-70); Platelet Count 283 K/mm3 (150-450); RBC Distribution Width CV 12.8 % (11.6-14.6); RBC Distribution Width SD 39.9 fl (35.1-43.9); Red Blood Count 5.03 M/mm3 (4.2-5.4); White Blood Count 5.8 K/mm3 (4.4-11.0)
[2021-05-21] MEDS: Ondansetron 4 MG/2 ML Vial IV (10:50)
[2021-05-21] MEDS: morphine 8 MG/ML Syringe 6 MG IV (10:51)
[2021-05-21 10:52] LABS: Internal QC Validated? YES +Cl - CLEAR BKGD; Pregnancy, Serum, hCG Quali. NEGATIVE Negative
== END 2021-05-21 11:33 | disposition home or self-care (01) ==
PROVIDERS: Emergency Provider Emergency Medicine; PCP Family Medicine; Visit Provider Emergency Medicine
DX: N93.9 Abnormal uterine and vaginal bleeding, unspecified (principal); Z68.41 Body mass index [BMI] 40.0-44.9, adult; E28.2 Polycystic ovarian syndrome; I10 Essential (primary) hypertension; E66.9 Obesity, unspecified
CPT/HCPCS: 84703; 85025; 96374; 96375; 99284; J7030; A4216; J2405

== ENCOUNTER 2021-07-14 10:20 | Day surgery (SDC) | payer BC, MEDICAID, SELFPAY ==
[2021-07-14] VITALS (9 sets, daily range): BP systolic 124–152; BP diastolic 47–108; PULSE 69–86; RESP 16–30; TEMP 36.1–36.6; O2SAT 93–100; BMI 42.0
--- NOTE | 2021-07-14 | IMM_PTH ---
PATIENT: SOPHIE SNOWDEN [place] [facility] [place] [facility] [place][id number] AGE/SX: 41/F ROOM: RE07/14/[address]: Dr. Emiliana Watkins MD : 1980 BED: DIS: 07/14/2021 SPEC #: [id number] RECD: 07/18/21 13:35 STATUS: DEACON REQ #: [id number] SVEN: 07/14/21 00:[address]: Emiliana Watkins DEPT: IMMUNOHISTOCHEMISTRY RECD BY: Nia Riojas ENTERED: 07/18/21 13:36 SP TYPE: IMMUNO OTHR DR: Dr. Dennis Sosa MD Tissues: A - UTERINE CERVIX LEEP Procedures: p16 (initial) KI-67 (add) P16 (add) PHYSICIAN & INSTITUTION [place] [id number] SPECIMEN INFORMATION: Tissue Source: A ? Cervical cone biopsy Clinical Info: NIKITA II Specimen Number: [id number] A1 & A7 CPT code: 84252, 67629 x3 METHODOLOGY: Deparaffinized sections of prefer/formalin-fixed tissue or PAP/DQ stained slides are incubated with monoclonal/polyclonal antibodies/oligonucleotide probes. Localization is made via biotin free immunoperoxidase method. Appropriate controls are performed and reacted as expected. Results on target cell population are indicated in the following table: RESULTS: ANTIBODY / CLONE RESULT Block A1 P16 (E6H4) positive, focal block staining Ki-67 (30-9) positive, focal and moderate Block A7 P16 (E6H4) positive, focal block staining Ki-67 (30-9) positive, focal and moderate These tests were developed and their performance characteristics determined by [facility]. They may not have been cleared or approved by the U.S. Food and Drug Administration. The FDA has determined that such clearance or approval is not necessary. The above immunohistochemical/dualISH markers are ordered and reviewed by the Pathologist. INTERPRETATION: Cervix, cone biopsy: Focal mild and moderate squamous dysplasia. GARCIA:graciela 07/19/2021
[2021-07-14 10:54] LABS: Absolute Lymphocyte Count 1.87 X10^3/uL (0.83-4.51); Absolute Neutrophil Count 5.1 X10^3/uL (2.0-7.7); Basophil# 0.04 X10^3/uL; Basophil% 0.5 % (0-1); Eosinophil# 0.07 X10^3/uL; Eosinophils% 0.9 % (0-5); Hematocrit 46.4 % (37-47); Hemoglobin 15.1 g/dL (12.0-15.0); Lymphocyte # 1.87 X10^3/ul (0.83-4.51); Lymphocyte % 24.6 % (19-41); Mean Corp Hgb Conc 32.5 g/dL (32-36); Mean Corpuscular Hgb 29.7 pg (27.0-32.0); Mean Corpuscular Volume 91.3 fL (81-99); Monocyte# 0.49 X10^3/uL; Monocyte% 6.4 % (0-10); NRBC Flagged by Analyzer 0 % (0-5); Neutrophil # 5.11 X10^3/uL (2.7-7.7); Neutrophil % 67.2 % (47-70); Platelet Count 320 K/mm3 (150-450); RBC Distribution Width SD 43.6 fl (35.1-43.9); Red Blood Count 5.08 M/mm3 (4.2-5.4); White Blood Count 7.6 K/mm3 (4.4-11.0)
[2021-07-14] MEDS: Lactated Ringers 1,000 ML 15 ML IV ×2 (11:04→15:58)
[2021-07-14 11:30] LABS: AST(SGOT) 27 U/L (15-37); Alanine Aminotransfer ALT/SGPT 48 U/L (13-56); Alkaline Phosphatase 73 U/L (45-117); Anion Gap 6 (5-15); BUN 14 mg/dL (7-18); Calcium,Total 8.8 mg/dL (8.5-10.1); Chloride 106 mmol/L (98-107); Creatinine, Serum 0.93 mg/dL (0.55-1.02); EST Glomerular Filtration Rate 70 mL/min (>60); Est Glom Filt Rate - Afr Amer 85 mL/min (>60); Estimated Creatinine Clearance 86.09 ml/min; Glucose 104 mg/dL (74-106); Potassium 3.8 mmol/L (3.5-5.1); Sodium Level 140 mmol/L (136-145)
--- NOTE | 2021-07-14 12:00 | CONE_PTH ---
PATIENT: SOPHIE SNOWDEN LOC: [facility] [place] U#:[id number] AGE/SX: 41/F ROOM: RE07/14/[address]: Dr. Emiliana Watkins MD : 1980 BED: DIS: 07/14/2021 SPEC #: [id number] RECD: 07/14/21 14:43 STATUS: DEACON LUCIANO #: [id number] SVEN: 07/14/21 12:[address]: Emiliana Watkins DEPT: SURGICAL PATHOLOGY RECD BY: Maria Ines Carrizales ENTERED: 07/17/21 08:36 SP TYPE: Leep Cone JEY DR: Dr. Dennis Sosa MD Tissues: A - UTERINE CERVIX LEEP B - Endocervical Procedures: Surgery Specimen Level IV Surgery Specimen Level V HEADER OPERATION: Cold conization of cervix PRE-OP DIAGNOSIS: NIKITA II TISSUE SUBMITTED: A ? Cervical cone biopsy, B ? Endocervical curettage MICROSCOPIC DIAGNOSIS A. Cervix, cone biopsy: Focal mild and moderate squamous dysplasia (HGSIL and NIKITA I-II). Focal chronic inflammation, squamous metaplasia and parakeratosis. Resection margins are free of dysplastic changes. See comment. B. Endocervical curettings: Scant desquamated squamous epithelial cells and blood clot, negative for dysplasia. See comment. SJ:rg 07/18/2021 COMMENT A. Immunohistochemistry ([id number]) for surrogate HPV marker (p16) supports the above diagnosis. B. The specimen predominantly consists of blood clot. MICROSCOPIC DESCRIPTION Slides are reviewed. GROSS DESCRIPTION A - Received in fixative is one container labeled with the patient's name and designated cervical cone biopsy. The specimen consists of a rouse, indurated piece of tissue consistent with cone biopsy measuring 3 x 2.5 x 1.5 cm. No mucosal lesion is identified. Nonmucosal surface is inked black. The endocervical margin is inked blue. The specimen is not oriented. The specimen is radially sectioned and submitted entirely in eight cassettes as follows: 1 & 2 ? one quadrant, 3 & 4 ? second quadrant, 5 & 6 - third quadrant, 7 & 8 ? four quadrant. B - Received in fixative is one container labeled with the patient's name and designated endocervical curettings. The specimen consists of multiple fragments of hemorrhagic soft tissue that in aggregate measure 1 x 0.2 x 0.1 cm. The specimen is totally submitted in one cassette. / SJ:graciela 07/17/2021 TC:5 CPT: 66239, 39804
--- NOTE | 2021-07-14 12:33 | HP.PCM_ITS ---
HPI - General HPI Narrative SOPHIE SNOWDEN, is a 41 F who presents for surgery. Denies complaints [facility] Medical History (Updated 07/14/21 @ 12:[address] Emiliana Watkins MD) Alcohol use Anxiety NIKITA II (cervical intraepithelial neoplasia II) COVID CPAP (continuous positive airway pressure) dependence Dietary restriction Fatty liver Gastric reflux Hernia HTN (hypertension) Hx LEEP (loop electrosurgical excision procedure), cervix, Non-smoker PCOS (polycystic ovarian syndrome) Seasonal allergies Sleep apnea Vasovagal episode Wears glasses Home Medications hydrochlorothiazide 12.5 mg PO DAILY 08/24/18 [History Last Taken Unknown] omeprazole 40 mg PO DAILY 03/13/19 [History Last Taken Unknown] metformin 500 mg PO BID 05/05/21 [History Last Taken Unknown] losartan 50 mg PO DAILY 05/21/21 [History Last Taken Unknown] medroxyprogesterone 10 mg PO DAILY 07/07/21 [History Last Taken Unknown] Allergy/AdvReac Type Severity Reaction Status Date / Time miconazole [From Monistat 7] Allergy Rash Verified 07/14/21 10:52 adhesive tape AdvReac Rash Verified 07/14/21 10:52 lisinopril AdvReac Other Verified 07/14/21 10:52 metronidazole [From Flagyl] AdvReac Vomiting Verified 07/14/21 10:52 naproxen AdvReac Upset Verified 07/14/21 10:52 Stomach NSAIDS (Non-Steroidal AdvReac Upset Verified 07/14/21 10:52 Anti-Inflamma Stomach Surgical History History of appendectomy History of History of cholecystectomy History of hernia repair History of ovarian cystectomy History of tubal ligation Social History Smoking Status: Never smoker Vital Signs Vital Signs Vital Signs: 07/14/21 10:45 Temperature 97.9 F Temperature Source Temporal Pulse Rate 86 Respiratory Rate 18 Respiratory Pattern Normal Blood Pressure 141/86 H Blood Pressure Mean 104 Blood Pressure Source Monitor Blood Pressure Position Sitting Blood Pressure Location Right Forearm Pulse Ox 98 Oxygen Delivery Method Room Air Weight Weight: 293 lb 3.437 oz Body Mass Index (BMI) 42.0 Physical Exam Const alert and oriented x3 Resp normal respiratory effort and clear to auscultation bilaterally Cardio regular rate and regular rhythm GI soft to palpation, non-tender and non-distended Extremity no calf tenderness Neuro CN's II-XII intact bilaterally Results Lab / Micro Data Result Diagrams: 07/14/21 10:45 07/14/21 10:45 Labs: Laboratory Results - last 24 hr 07/14/21 10:45: WBC 7.6, RBC 5.08, Hgb 15.1 H, Hct 46.4, MCV 91.3, MCH 29.7, MCHC 32.5, RDW Std Deviation 43.6, RDW Coeff of Yuki 13.0, Plt Count 320, MPV 8.0, Immature Gran % (Auto) 0.400, Neut % (Auto) 67.2, Lymph % (Auto) 24.6, [place] % (Auto) 6.4, Eos % (Auto) 0.9, Baso % (Auto) 0.5, Absolute Neuts (auto) 5.1, Absolute Lymphs (auto) 1.87, Nucleated RBC % 0 07/14/21 10:45: Sodium 140, Potassium 3.8, Chloride 106, Carbon Dioxide 28.0, Anion Gap 6, BUN 14, Creatinine 0.93, Estim Creat Clear Calc 86.09, Est GFR (MDRD) Af Amer 85, Est GFR (MDRD) Non-Af 70, BUN/Creatinine Ratio 15.0, Glucose 104, Calcium 8.8, Total Bilirubin 0.80, AST 27, ALT 48, Alkaline Phosphatase 73, Total Protein 8.0, Albumin 4.0, Globulin 4.0, Albumin/Globulin Ratio 1.0 07/14/21 10:45: Blood Type A POSITIVE, Antibody Screen NEGATIVE Micro: Microbiology 07/14/21 10:37 Interface Orders SARS-CoV-2 Antigen (Rapid) - Final Assessment & Plan Assessment/Plan (1) NIKITA II (cervical intraepithelial neoplasia II): PLAN: Discussed R/B/A of treatment options. Patient wishes to proceed with CKC of cervix. All questions answered at pre-op visit & informed consent signed.
--- NOTE | 2021-07-14 13:01 | OP.PCM_ITS ---
Report of Operation Date of Procedure: 07/14/21 Pre-Operative Diagnosis: NIKITA 2 Post-Operative Diagnosis: Same Surgery/Procedure Performed:: Cold knife conization of cervix Description of Surgical Findings:: Non-staining area of cervix (lugols) conistent with cervical dysplasia Surgeon: Emiliana Watkins assistant printer floor covering: Rohit Renner Type of Anesthesia: MAC/Supplemental/Local Specimen's removed: Cervical biopsy, ECC Estimated Blood Loss (mL): 400ml Fluids Replaced: 1700ml Description of Procedure: Patient taken to OR where MAC anesthesia placed and found to be adequate. She was prepped & draped in the normal sterile fashion in the dorsal lithotomy position. Speculum inserted & cervix grasped with tenaculum. 10ml lidocaine with epinephrine injected for a paracervical block. Stay sutures placed at 3 & 6 o'clock. Circumferential incision made with a scalpel. Cold knife biopsy completed with scalpel. Hemostasis obtained with bovie cautery and 6 figure of 8 sutures using O vicryl. Fibrillar was placed in the hemostatic surgical site to ensure continued hemostasis. At the end of the procedure all instruments were removed from the vaginal cavity. Sponege, lap & needle counts were correct x2. Procedure Start Time: 13:14 Procedure Stop Time: 14:41 Admit VTE Documentation VTE Pharm Prophylaxis ordered?: No
[2021-07-14] MEDS: Lidocaine 1%/Epi 1:200 (30ml) 30 ML AMPUL OPERA.SITE (13:15)
[2021-07-14] MEDS: Iodine/Potassium Iodide 14ML Bottle 1 DRP TOPICAL (13:20)
--- NOTE | 2021-07-14 14:48 | PCM.DC ---
Discharge Instructions Diet Discharge Diet: No restrictions Activity Discharge Activity: May Shower May resume sexual activity in: 4 weeks (after cleared by MD) and 6 weeks Weight Bearing Status: Weight bearing as tolerated Dressing / Incision Call your doctor if you observe: Fever of 101 or Higher, Coldness, Increased Pain, Change in Color, Inability to urinate, Inability to have a bowel movement, Using more than 1 pad per hour, Shortness of breath, Dizziness, Fainting spells, Chest pain, Increased palpitations (irregular heartbeat), Calf discomfort and Uncontrolled pain Follow Up Care Please Follow Up With: Emiliana Watkins MD When: Follow up in 4 weeks. Test Results: Test results from this visit will be discussed in further detail at your follow-up appointment, if applicable. Discharge Plan Admission Primary Reason for Your Visit: Cold knife conization of cervix Attending Provider: Emiliana Watkins Primary Care Provider: Dennis Sosa Discharge Orders/Prescriptions Prescriptions: No Action hydrochlorothiazide 12.5 MG capsule 12.5 mg PO DAILY RF: 0 omeprazole 40 MG capsule,delayed release(DR/EC) 40 mg PO DAILY RF: 0 metformin 500 mg Tablet 500 mg PO BID RF: 0 losartan 50 mg tablet 50 mg PO DAILY RF: 0 medroxyprogesterone 10 mg tablet 10 mg PO DAILY RF: 0 Referrals / Follow Up: Dennis Sosa MD [Primary Care Provider] - Disposition Disposition (needs filled in before D/C Order can be placed): Home, Self Care
== END 2021-07-14 17:27 | disposition home or self-care (01) ==
LOC: SDC 10:21 → AC 10:22
PROVIDERS: PCP Family Medicine; Referring Provider Obstetrics & Gynecology; Visit Provider Obstetrics & Gynecology
PROC: 0UBC7ZZ Excision of Cervix, Via Natural or Artificial Opening (ICD-10-PCS; CPT 57520; principal; 2021-07-14 11:45)
DX: N87.1 Moderate cervical dysplasia (principal); I10 Essential (primary) hypertension; F41.9 Anxiety disorder, unspecified; K76.0 Fatty (change of) liver, not elsewhere classified; K21.9 Gastro-esophageal reflux disease without esophagitis; E28.2 Polycystic ovarian syndrome; G47.30 Sleep apnea, unspecified; Z79.84 Long term (current) use of oral hypoglycemic drugs; Z79.899 Other long term (current) drug therapy; Z86.16 Personal history of COVID-19
CPT/HCPCS: 57520; 80053; 85025; 86850; 86900; 86901; 87426; 88305; 88307; 88341; 88342; J7120; J2405